=== PATIENT | male | born 1970 | race Caucasian/White ===

== ENCOUNTER 2020-02-29 08:56 | Outpatient (REF) | payer BC, SELFPAY ==
[2020-02-29 09:59] LABS: MANUAL DIFF FLAG NO
[2020-02-29 10:03] LABS: Basophils Percent Auto 0.3 % (0-2); Eosinophils Absolute Auto 0.4 X10*3/uL (0.0-0.4); Eosinophils Percent Auto 5.8 % (0-4); Hematocrit 47.7 % (42-52); Hemoglobin 15.8 g/dl (14.0-18.0); Imm Gran Abs Auto 0.02 X10*3/uL (0.00-0.03); Imm Gran Pct Auto 0.3 % (0.0-0.4); Lymphocytes Absolute Auto 2.4 X10*3/uL (1.2-4.9); Lymphocytes Percent Auto 39.3 % (20-40); Mean Corpuscular HGB Conc 33.1 g/dl (31.0-36.0); Mean Corpuscular Hemoglobin 29.4 pg (27.0-33.0); Mean Corpuscular Volume 88.7 fL (80-98); Mean Platelet Volume 10.9 fL (9.4-12.4); Monocytes Absolute Auto 0.4 X10*3/uL (0.1-1.2); Monocytes Percent Auto 6.2 % (2-11); Neutrophils Absolute Auto 2.9 X10*3/uL (2.0-8.3); Neutrophils Percent Auto 48.1 % (45-73); Platelet Count 201 X10*3/uL (160-400); Red Blood Count 5.38 X10*6/uL (4.60-5.80); Red Cell Distribution Width 12.6 % (11.0-16.0)
[2020-02-29 10:33] LABS: Alanine Aminotransferase 31 U/L (0-40); Albumin Level 4.2 g/dL (3.5-5.0); Alkaline Phosphatase 80 U/L (39-117); Anion Gap 13 (12-20); Aspartate Amino Transferase 18 U/L (5-37); Bilirubin Total 0.6 mg/dL (0.0-1.0); Blood Urea Nitrogen 13 mg/dL (9-16); Calcium 9.3 mg/dL (8.4-10.2); Carbon Dioxide 27 mmol/L (22-29); Chloride 104 mmol/L (96-108); Cholesterol 193 mg/dL; Estimated Glomerular Filt Rate > 60; Glucose Fasting 157 mg/dL (60-99); HDL Cholesterol 37 mg/dL; LDL Cholesterol Calculated 109 mg/dl; Potassium 4.7 mmol/l (3.3-5.1); Sodium 139 mmol/L (135-145); Total Protein 7.1 g/dL (6.5-8.0); Triglycerides 237 mg/dL
[2020-02-29 10:59] LABS: Estimated Average Glucose 249 mg/dL; Hemoglobin A1c % 10.3 %
[2020-02-29 11:32] LABS: Creatinine Urine 174.82 mg/dL
== END 2020-02-29 08:57 | disposition home or self-care (01) ==
LOC: HO.LAB 08:56
PROVIDERS: PCP Internal Medicine; Visit Provider Internal Medicine
DX: Z00.00 Encounter for general adult medical examination without abnormal findings (principal); E11.9 Type 2 diabetes mellitus without complications
CPT/HCPCS: 36415; 80053; 80061; 82043; 83036; 85025

== ENCOUNTER 2021-02-09 09:09 | Outpatient (REF) | payer BC, SELFPAY ==
[2021-02-09 09:24] LABS: MANUAL DIFF FLAG NO
[2021-02-09 10:03] LABS: Basophils Percent Auto 0.7 % (0-2); Eosinophils Absolute Auto 0.4 X10*3/uL (0.0-0.4); Eosinophils Percent Auto 7.3 % (0-4); Hematocrit 43.9 % (42.0-52.0); Hemoglobin 14.8 g/dl (14.0-18.0); Imm Gran Abs Auto 0.01 X10*3/uL (0.00-0.03); Imm Gran Pct Auto 0.2 % (0.0-0.4); Lymphocytes Absolute Auto 2.3 X10*3/uL (1.2-4.9); Lymphocytes Percent Auto 37.8 % (20-40); Mean Corpuscular HGB Conc 33.7 g/dl (31.0-36.0); Mean Corpuscular Hemoglobin 29.1 pg (27.0-33.0); Mean Corpuscular Volume 86.4 fL (80.0-98.0); Mean Platelet Volume 10.7 fL (9.4-12.4); Monocytes Absolute Auto 0.4 X10*3/uL (0.1-1.2); Monocytes Percent Auto 7.1 % (2-11); Neutrophils Absolute Auto 2.8 x10*3/uL (2.0-8.3); Neutrophils Percent Auto 46.9 % (45-73); Platelet Count 199 X10*3/uL (160-400); Red Blood Count 5.08 X10*6/uL (4.60-5.80); Red Cell Distribution Width 12.8 % (11.0-16.0)
[2021-02-09 10:28] LABS: Creatinine Urine 177.48 mg/dL; Microalbum/Creatinine Ratio Ur 5.6 ug/mg cr
[2021-02-09 10:41] LABS: Estimated Average Glucose 148 mg/dL; Hemoglobin A1c % 6.8 %
[2021-02-09 10:52] LABS: Alanine Aminotransferase 24 U/L (0-40); Albumin Level 4.1 g/dL (3.5-5.0); Alkaline Phosphatase 71 U/L (39-117); Anion Gap 10 (12-20); Aspartate Amino Transferase 15 U/L (5-37); Bilirubin Total 0.7 mg/dL (0.0-1.0); Blood Urea Nitrogen 14 mg/dL (9-16); Calcium 9.5 mg/dL (8.4-10.2); Carbon Dioxide 27 mmol/L (22-29); Chloride 104 mmol/L (96-108); Cholesterol 174 mg/dL; Estimated Glomerular Filt Rate > 60; Glucose Fasting 172 mg/dL (60-99); HDL Cholesterol 41 mg/dL; LDL Cholesterol Calculated 109 mg/dl; Potassium 4.5 mmol/L (3.3-5.1); Sodium 136 mmol/L (135-145); Thyroid Stimulating Hormone 1.49 uIU/mL (0.32-4.0); Triglycerides 122 mg/dL
[2021-02-09 14:48] LABS: Prostate Specific Antigen Scr 1.28 ng/mL (<0.05-4.0)
== END 2021-02-09 09:10 | disposition home or self-care (01) ==
LOC: HO.LAB 09:09
PROVIDERS: PCP Internal Medicine; Visit Provider Internal Medicine
DX: Z00.00 Encounter for general adult medical examination without abnormal findings (principal); Z12.5 Encounter for screening for malignant neoplasm of prostate; Z13.0 Encounter for screening for diseases of the blood and blood-forming organs and certain disorders involving the immune mechanism; E11.9 Type 2 diabetes mellitus without complications
CPT/HCPCS: 36415; 80053; 80061; 82043; 83036; 84153; 84443; 85025

== ENCOUNTER 2021-02-16 13:28 | Outpatient (REF) | payer BC, SELFPAY ==
--- NOTE | ~2021-02-16 | XR_ITS ---
EXAMINATION: XR CHEST CLINICAL INFORMATION: Cough for 4 months. COMPARISON: None TECHNIQUE: 2 views of the chest were obtained. FINDINGS: No significant abnormality is noted involving the heart, lungs, mediastinum, bony thorax or soft tissues. XR/XR chest 2V IMPRESSION: No acute cardiopulmonary process.
== END 2021-02-16 13:29 | disposition home or self-care (01) ==
LOC: HO.XRAY 13:28
PROVIDERS: PCP Internal Medicine; Visit Provider Internal Medicine
DX: R05.9 Cough, unspecified (principal)
CPT/HCPCS: 71046

== ENCOUNTER 2021-06-19 08:58 | Outpatient (REF) | payer BC, SELFPAY ==
--- NOTE | ~2021-06-19 | CT_ITS ---
EXAMINATION: CT HEAD WITHOUT CONTRAST CLINICAL INFORMATION: Headache. COMPARISON: None TECHNIQUE: Contiguous axial imaging was performed from the skull base to vertex without intravenous administration of contrast. This CT examination was performed using dose optimization techniques as appropriate, variously including the following: *Automated exposure control *Adjustment of mA and/or kV according to patient size (this includes techniques or standardized protocols for targeted exams where dose is matched to indication/reason for exam; i.e. extremities or head) *Use of iterative reconstruction technique DLP: 781 mGy-cm FINDINGS: There is no evidence of acute intracranial hemorrhage or territorial infarction. No abnormal mass effect or midline shift is seen. Kumar to white matter differentiation is well preserved. No extra-axial fluid collections are identified. The ventricles are normal in size. The osseous structures and soft tissues are normal. There is minimal mucoperiosteal thickening bilateral ethmoid sinuses. Rest of the paranasal sinuses and mastoid air cells are well aerated. CT/CT head/brain wo con IMPRESSION: No acute intracranial process seen.
== END 2021-06-19 08:59 | disposition home or self-care (01) ==
LOC: HO.CT 08:58
PROVIDERS: Visit Provider Internal Medicine
DX: R51.9 Headache, unspecified (principal)
CPT/HCPCS: 70450

== ENCOUNTER 2022-02-24 09:01 | Outpatient (REF) | payer BC, SELFPAY ==
[2022-02-24 09:15] LABS: MANUAL DIFF FLAG NO
[2022-02-24 09:32] LABS: Basophils Percent Auto 0.5 % (0-2); Eosinophils Absolute Auto 0.3 X10*3/uL (0.0-0.4); Eosinophils Percent Auto 6.3 % (0-4); Hematocrit 44.8 % (42.0-52.0); Hemoglobin 15.2 g/dl (14.0-18.0); Imm Gran Abs Auto 0.02 X10*3/uL (0.00-0.03); Imm Gran Pct Auto 0.5 % (0.0-0.4); Lymphocytes Absolute Auto 1.3 X10*3/uL (1.2-4.9); Lymphocytes Percent Auto 29.6 % (20-40); Mean Corpuscular HGB Conc 33.9 g/dl (31.0-36.0); Mean Corpuscular Hemoglobin 29.3 pg (27.0-33.0); Mean Corpuscular Volume 86.3 fL (80.0-98.0); Mean Platelet Volume 11.1 fL (9.4-12.4); Monocytes Absolute Auto 0.4 X10*3/uL (0.1-1.2); Monocytes Percent Auto 9.3 % (2-11); Neutrophils Absolute Auto 2.4 x10*3/uL (2.0-8.3); Neutrophils Percent Auto 53.8 % (45-73); Platelet Count 149 X10*3/uL (160-400); Red Blood Count 5.19 X10*6/uL (4.60-5.80); Red Cell Distribution Width 12.2 % (11.0-16.0); White Blood Count 4.4 X10*3/uL (4.8-10.8)
[2022-02-24 10:17] LABS: Alanine Aminotransferase 101 U/L (0-40); Albumin Level 3.9 g/dL (3.5-5.0); Alkaline Phosphatase 93 U/L (39-117); Anion Gap 13 (12-20); Aspartate Amino Transferase 77 U/L (5-37); Bilirubin Total 0.6 mg/dL (0.0-1.0); Blood Urea Nitrogen 11 mg/dL (9-16); Calcium 9.1 mg/dL (8.4-10.2); Carbon Dioxide 25 mmol/L (22-29); Chloride 103 mmol/L (96-108); Cholesterol 290 mg/dL; Estimated Average Glucose 275 mg/dL; Estimated Glomerular Filt Rate > 60; Glucose Fasting 327 mg/dL (60-99); HDL Cholesterol 35 mg/dL; Hemoglobin A1c % 11.2 %; LDL Cholesterol Calculated 196 mg/dl; Potassium 3.8 mmol/L (3.3-5.1); Sodium 137 mmol/L (135-145); Total Protein 6.8 g/dL (6.5-8.0); Triglycerides 298 mg/dL
[2022-02-24 10:39] LABS: Thyroid Stimulating Hormone 1.26 uIU/mL (0.32-4.0)
== END 2022-02-24 09:02 | disposition home or self-care (01) ==
LOC: HO.LAB 09:01
PROVIDERS: Visit Provider Internal Medicine
DX: Z00.00 Encounter for general adult medical examination without abnormal findings (principal); Z13.0 Encounter for screening for diseases of the blood and blood-forming organs and certain disorders involving the immune mechanism; E11.9 Type 2 diabetes mellitus without complications
CPT/HCPCS: 36415; 80053; 80061; 83036; 84443; 85025

== ENCOUNTER 2022-03-29 09:42 | Outpatient (REF) | payer BC, SELFPAY ==
[2022-03-29 11:40] LABS: Creatinine Urine 123.63 mg/dL; Microalbum/Creatinine Ratio Ur 5.6 ug/mg cr
[2022-03-29 11:46] LABS: Estimated Average Glucose 240 mg/dL
[2022-03-29 11:53] LABS: Glucose Fasting 217 mg/dL (60-99)
== END 2022-03-29 09:43 | disposition home or self-care (01) ==
LOC: HO.LAB 09:42
PROVIDERS: PCP Internal Medicine; Visit Provider Internal Medicine
DX: E66.01 Morbid (severe) obesity due to excess calories (principal); E11.65 Type 2 diabetes mellitus with hyperglycemia
CPT/HCPCS: 36415; 82043; 82947; 83036

== ENCOUNTER 2022-07-07 08:35 | Outpatient (REF) | payer BC, SELFPAY ==
[2022-07-07 09:35] LABS: Cholesterol 225 mg/dL; Glucose Fasting 324 mg/dL (60-99); HDL Cholesterol 37 mg/dL; Triglycerides 1064 mg/dL
[2022-07-07 09:37] LABS: Estimated Average Glucose 214 mg/dL; Hemoglobin A1c % 9.1 %
== END 2022-07-07 08:36 | disposition home or self-care (01) ==
LOC: HO.LAB 08:35
PROVIDERS: PCP Internal Medicine; Visit Provider Internal Medicine
DX: R73.9 Hyperglycemia, unspecified (principal); E78.5 Hyperlipidemia, unspecified
CPT/HCPCS: 36415; 80061; 82947; 83036

== ENCOUNTER 2022-12-10 08:44 | Outpatient (REF) | payer BC, SELFPAY ==
--- NOTE | ~2022-12-10 | XR_ITS ---
EXAMINATION: XR CERVICAL SPINE CLINICAL INFORMATION: Cervicalgia. COMPARISON: None available. TECHNIQUE: Frontal, lateral and odontoid views are obtained. FINDINGS: Vertebral body heights and alignment are normal. The disc spaces are well-maintained. No acute fracture or spondylolisthesis is seen. There are limbus vertebra incidentally noted anterior to the C4-C5 and C5-C6 disc spaces. The posterior elements are intact. There is facet arthropathy, most pronounced at C5-C6. There is no prevertebral soft tissue swelling. The dens and C7-T1 interface are normal. XR/XR cervical spine 2V IMPRESSION: 1.No acute fracture or spondylolisthesis is seen. 2. The cervical disc spaces are well-maintained. 3. There is facet arthropathy, most pronounced at C5-C6.
[2022-12-10 09:50] LABS: Estimated Average Glucose 220 mg/dL; Hemoglobin A1c % 9.3 % (<6.0)
[2022-12-10 10:26] LABS: Cholesterol 172 mg/dL (<200); Glucose Fasting 267 mg/dL (60-99); HDL Cholesterol 47 mg/dL (>40); LDL Cholesterol Calculated 100 mg/dL (<100); Triglycerides 128 mg/dL (<150)
== END 2022-12-10 08:45 | disposition home or self-care (01) ==
LOC: HO.LAB 08:44
PROVIDERS: PCP Internal Medicine; Visit Provider Internal Medicine
DX: R73.9 Hyperglycemia, unspecified (principal); E78.5 Hyperlipidemia, unspecified; M54.2 Cervicalgia
CPT/HCPCS: 36415; 72040; 80061; 82947; 83036

== ENCOUNTER 2022-12-10 13:44 | Outpatient (AMB) | payer BC, SELFPAY ==
[2022-12-10 13:48] VITALS: BP 122/86; PULSE 73; O2SAT 98; BMI 25.7
--- NOTE | 2022-12-10 13:48 | MHC.PC.OV ---
Vital Signs 12/10/22 13:48 Height 5 ft 6 in Weight 159 lb BMI 25.7 BP 122/86 Blood Pressure Location Lt brachial Position Sitting Pulse 73 Pulse Source Pulse Oximeter Pulse Oximetry (%) 98 Oxygen Delivery Method Room Air Intake Visit Reasons: 3 month f/u Allergies No Known Allergies Allergy (Verified 12/10/22 13:48) Medication List - Last Reconciled 12/10/22 by Aguilar Landaverde MD atorvastatin 40 mg PO DAILY blood-glucose meter,continuous (Dexcom G7 Spinner Hydraulic) As directed blood-glucose sensor (Dexcom G7 Sensor device) As directed hydroxyzine HCl 25 mg PO BID PRN hydroxyzine pamoate 25 mg PO QID PRN metformin 500 mg PO BID naltrexone 50 mg PO DAILY Tobacco use date assessed: 02/26/22 Dental Screening Dental Screen Date: 12/10/22 Did you have a dental visit in the last 12 months?: No Did you have a dental problem in the last 6 months where you did not have access to dental care?: No Was dental information given to patient?: Patient has dentist HPI 3 month f/u HPI Details DM hyperlip and neck pain; tolreating metformin well; A1C still high and needs to increase dose PFSH Medical History Hyperlipidemia associated with type 2 diabetes mellitus Hyperlipidemia Diabetes mellitus Surgical History No pertinent past surgical history Family History Father No problems noted. Mother No problems noted. Social History Housing: House Alcohol intake: current Alcohol intake frequency: a few times a month Patient Tobacco Use Status: Never used Tobacco e-Cigarette/Vaping Use: Never Used Second Hand Smoke Exposure: No service: No Current occupational status: employed Current occupational exposures/hazards: No Cognitive needs: No Hearing needs: No Vision needs: No Questionnaire PHQ-9 Over the last 2 weeks, how often have you been bothered by any of the following problems? 1. Little interest or pleasure in doing things: not at all 2. Feeling down, depressed, or hopeless: not at all 3. Trouble falling or staying asleep, or sleeping too much: not at all 4. Feeling tired or having little energy: not at all 5. Poor appetite or overeating: not at all 6. Feeling bad about yourself - or that you are a failure or have let yourself or your family down: not at all 7. Trouble concentrating on things, such as reading the newspaper or watching television: not at all 8. Moving or speaking so slowly that other people could have noticed. Or the opposite - being so fidgety or restless that you have been moving around a lot more than usual: not at all 9. Thoughts that you would be better off or of hurting yourself in some way: not at all Total score: 0 Depression Screening Interpretation: Negative Depression Screening Done: Yes 14786 - PHQ-9 Billing: Yes Source: Developed by Drs. Alan Perez, Mitzy De Souza, Bryan Haider and colleagues, with an educational nando from [employer]. Thrive Questionnaire Date Thrive assessed: 02/26/22 AUDIT C Alcohol Use Questionnaire (AUDIT-C) 1. How often do you have a drink containing alcohol?: Never Total Score: 0 Score Reviewed/Action Taken: Yes SERGEI-7 AMB Questionnaire SERGEI-7 Date SERGEI - 7 assessed: 02/26/22 Source: Developed by Drs. Alan Perez, Mitzy De Souza, Bryan Haider and colleagues, with an educational nando from [employer]. Review of Systems Const Denies chills, Denies headache(s) and Denies weight loss ENT Denies headache(s) Card Denies chest pain, Denies syncope, Denies irregular heart rhythm and Denies dyspnea Resp Denies chest congestion, Denies cough and Denies dyspnea GI Denies abdominal pain, Denies change in stool character, Denies nausea and Denies vomiting Musc Denies deformity and Denies joint swelling Neuro Denies syncope and Denies headache(s) Physical exam (Primary Care) Vital Signs: Last Vital Signs Pulse 73 12/10/22 13:48 BP 122/86 12/10/22 13:48 Pulse Ox 98 12/10/22 13:48 Oxygen Delivery Method Room Air 12/10/22 13:48 BMI result Body Mass Index 25.7 Tobacco/Smoking Status: Tobacco use Status Tobacco use date assessed 02/26/22 12/10/22 13:53 Patient Tobacco Use Status Never used Tobacco 12/10/22 13:53 Tobacco use type 01/22/22 16:07 e-Cigarette/Vaping Use Never Used 12/10/22 13:53 PHQ-9: PHQ-9 Score PHQ-9: Total score 0 12/10/22 13:53 Depression Screening Interpretation: Negative Thrive Assessment: Date of Thrive Assessment Date Thrive assessed 02/26/22 12/10/22 13:53 Const General: cooperative, comfortable, no acute distress and alert Neck Neck: Yes no lymphadenopathy Thyroid: Thyroid normal Resp Effort & Inspection: normal respiratory effort Auscultation: clear to auscultation bilaterally Percussion: percussion normal Cardio Jugular venous distension: no JVD Palpation: normal PMI Rate: regular rate Rhythm: regular rhythm Heart sounds: S1 normal heart sound present and S2 normal heart sound present GI Inspection: Yes normal to inspection Palpation (GI): No hepatosplenomegaly present Skin General skin exam: no rashes or lesions noted Extrem General: Yes no clubbing, cyanosis or edema Assessment and Plan Assessment & Plan (1) Hyperlipidemia associated with type 2 diabetes mellitus: Code(s): E11.69 - Type 2 diabetes mellitus with other specified complication; E78.5 - Hyperlipidemia, unspecified Plan: stable; same sose (2) Diabetes mellitus: Code(s): E11.9 - Type 2 diabetes mellitus without complications Plan: increase rx (3) Neck pain: Code(s): M54.2 - Cervicalgia Plan: xr Orders: Orders Lipid Panel Today E78.5 - Hyperlipidemia, unspecified Glucose Fasting Today R73.9 - Hyperglycemia, unspecified XR cervical spine 2V Today M54.2 - Cervicalgia Hemoglobin A1c Today R73.9 - Hyperglycemia, unspecified Medications: New metformin 1,000 mg PO BID 180 tabs 8RF Refilled atorvastatin 40 mg PO DAILY 90 tabs 3RF metformin 500 mg PO BID 180 tabs 2RF E11.9 - Type 2 diabetes mellitus without complications Coding Level of Care Code Est Pt Level 4 (27508) Diagnoses Hyperlipidemia associated with type 2 diabetes mellitus E11.69; E78.5 Diabetes mellitus E11.9 Neck pain M54.2
== END 2022-12-10 14:00 | disposition home or self-care (01) ==
PROVIDERS: PCP Internal Medicine; Visit Provider Internal Medicine
DX: E11.69 Type 2 diabetes mellitus with other specified complication (principal); E78.5 Hyperlipidemia, unspecified; E11.9 Type 2 diabetes mellitus without complications; M54.2 Cervicalgia
CPT/HCPCS: 99214

== ENCOUNTER 2023-02-06 09:00 | Outpatient (AMB) | payer BC, SELFPAY ==
--- NOTE | 2023-02-06 08:49 | A.OFFPC_ITS ---
Vital Signs 02/06/23 08:49 Height 5 ft 6 in Intake Visit Reasons: Cold/flu symptoms sore throat/[phone] Mobile Disc Jockey Required: No Allergies No Known Allergies Allergy (Verified 02/06/23 08:50) Tobacco use date assessed: 02/26/22 Dental Screening Dental Screen Date: 02/06/23 Did you have a dental visit in the last 12 months?: Yes Did you have a dental problem in the last 6 months where you did not have access to dental care?: No Was dental information given to patient?: Patient has dentist HPI Cold/flu symptoms sore throat/[phone] HPI Details sore throat for a few days PFSH Medical History Hyperlipidemia associated with type 2 diabetes mellitus Hyperlipidemia Diabetes mellitus Surgical History No pertinent past surgical history Family History Father No problems noted. Mother No problems noted. Social History Housing: House Alcohol intake: current Alcohol intake frequency: a few times a month Patient Tobacco Use Status: Never used Tobacco e-Cigarette/Vaping Use: Never Used Second Hand Smoke Exposure: No service: No Current occupational status: employed Current occupational exposures/hazards: No Cognitive needs: No Hearing needs: No Vision needs: No Questionnaire Thrive Questionnaire Date Thrive assessed: 02/26/22 SERGEI-7 AMB Questionnaire SERGEI-7 Date SERGEI - 7 assessed: 02/26/22 Source: Developed by Drs. Alan Perez, Mitzy De Souza, Bryan Haider and colleagues, with an educational nando from [employer]. Review of Systems Const Denies chills, Denies headache(s) and Denies weight loss ENT Denies headache(s) Card Denies chest pain, Denies syncope, Denies irregular heart rhythm and Denies dyspnea Resp Denies chest congestion, Denies cough and Denies dyspnea GI Denies abdominal pain, Denies change in stool character, Denies nausea and Denies vomiting Musc Denies deformity and Denies joint swelling Neuro Denies syncope and Denies headache(s) Physical exam (Primary Care) Tobacco/Smoking Status: Tobacco use Status Tobacco use date assessed 02/26/22 02/06/23 08:51 Patient Tobacco Use Status Never used Tobacco 02/06/23 08:51 Tobacco use type 01/22/22 16:07 e-Cigarette/Vaping Use Never Used 02/06/23 08:51 Thrive Assessment: Date of Thrive Assessment Date Thrive assessed 02/26/22 02/06/23 08:51 Telehealth Telehealth Location of provider rendering services: practice address Location of patient: address on file Patient Identification confirmed using: Name, : Yes Telehealth method: voice only Patient verbally consented to treatment: Yes Patient verbally consented to billing insurance company: Yes Patient informed of any privacy concerns related to visit: Yes Minutes spent on Phone/Video with Pt.: 15 (telephone) Assessment and Plan Assessment & Plan (1) Sore throat: Code(s): J02.9 - Acute pharyngitis, unspecified Plan: rx Medications: New azithromycin take 500 mg today (day 1), then 250 mg for 4 days (days 2-5) PO 6 tabs 0RF Coding Level of Care Code Tele Est Pt Level 3 (92169) Diagnoses Sore throat J02.9
== END 2023-02-06 10:04 | disposition home or self-care (01) ==
LOC: HO.HMGH 09:00
PROVIDERS: PCP Internal Medicine; Visit Provider Internal Medicine
DX: J02.9 Acute pharyngitis, unspecified (principal)
CPT/HCPCS: 99442

== ENCOUNTER 2023-03-02 09:43 | Outpatient (REF) | payer BC, SELFPAY ==
[2023-03-02 10:23] LABS: Estimated Average Glucose 258 mg/dL; Hemoglobin A1c % 10.6 % (<6.0)
[2023-03-02 10:49] LABS: Cholesterol 146 mg/dL (<200); Glucose Fasting 267 mg/dL (60-99); HDL Cholesterol 35 mg/dL (>40); LDL Cholesterol Calculated 54 mg/dL (<100); Triglycerides 287 mg/dL (<150)
== END 2023-03-02 09:44 | disposition home or self-care (01) ==
LOC: HO.LAB 09:43
PROVIDERS: PCP Internal Medicine; Visit Provider Internal Medicine
DX: R73.9 Hyperglycemia, unspecified (principal); E78.5 Hyperlipidemia, unspecified
CPT/HCPCS: 36415; 80061; 82947; 83036

== ENCOUNTER 2023-03-04 09:01 | Outpatient (AMB) | payer BC, SELFPAY ==
[2023-03-04 09:05] VITALS: BP 114/64; PULSE 70; O2SAT 99; BMI 25.8
--- NOTE | 2023-03-04 09:05 | A.OFFPC_ITS ---
Vital Signs 03/04/23 09:05 Height 5 ft 6 in Weight 160 lb BMI 25.8 BP 114/64 Blood Pressure Location Lt brachial Position Sitting Pulse 70 Pulse Source Pulse Oximeter Pulse Oximetry (%) 99 Oxygen Delivery Method Room Air Intake Visit Reasons: PE .Net Developer Required: No Sammying Machine Operator: Not Required per policy Accompanied by: Self / Same As Patient Allergies No Known Allergies Allergy (Verified 03/04/23 09:05) Medication List - Last Reconciled 03/04/23 by Aguilar Landaverde MD albuterol sulfate 90 mcg/actuation (ProAir HFA) 2 puffs PO Q6H PRN atorvastatin 40 mg PO DAILY azithromycin take 500 mg today (day 1), then 250 mg for 4 days (days 2-5) PO blood-glucose meter,continuous (Dexcom G7 Process Engineering Manager) As directed blood-glucose sensor (Dexcom G7 Sensor device) As directed metformin 500 mg PO BID metformin 1,000 mg PO BID Tobacco use date assessed: 03/04/23 Dental Screening Dental Screen Date: 03/04/23 Did you have a dental visit in the last 12 months?: No Did you have a dental problem in the last 6 months where you did not have access to dental care?: No Was dental information given to patient?: Patient has dentist HPI PE HPI Details asthma DM and hyperlip; DM in poor cintrol [facility], [facility] Medical History Hyperlipidemia associated with type 2 diabetes mellitus Hyperlipidemia Diabetes mellitus Surgical History No pertinent past surgical history Family History Father No problems noted. Mother No problems noted. Social History Housing: House Alcohol intake: current Alcohol intake frequency: a few times a month Patient Tobacco Use Status: Never used Tobacco e-Cigarette/Vaping Use: Never Used Second Hand Smoke Exposure: No service: No Current occupational status: employed Current occupational exposures/hazards: No Cognitive needs: No Hearing needs: No Vision needs: No Questionnaire PHQ-9 Over the last 2 weeks, how often have you been bothered by any of the following problems? 1. Little interest or pleasure in doing things: not at all 2. Feeling down, depressed, or hopeless: not at all 3. Trouble falling or staying asleep, or sleeping too much: not at all 4. Feeling tired or having little energy: not at all 5. Poor appetite or overeating: not at all 6. Feeling bad about yourself - or that you are a failure or have let yourself or your family down: not at all 7. Trouble concentrating on things, such as reading the newspaper or watching television: not at all 8. Moving or speaking so slowly that other people could have noticed. Or the opposite - being so fidgety or restless that you have been moving around a lot more than usual: not at all 9. Thoughts that you would be better off or of hurting yourself in some way: not at all Total score: 0 Depression Screening Interpretation: Negative Depression Screening Done: Yes 97529 - PHQ-9 Billing: Yes Source: Developed by Drs. Alan Perez, Mitzy De Souza, Bryan Haider and colleagues, with an educational nando from [employer]. Thrive Questionnaire Date Thrive assessed: 03/04/23 I am a: Patient What is your living situation today?: I have a steady place to live Within the past 12 months, did the food you bought not last and you didn't have the money to get more?: Never true Within the past 12 months, did you worry whether your food would run out before you got money to buy more?: Never true Do you have trouble paying for medicines?: No Do you have trouble getting transportation to medical appointments?: No Do you have trouble paying your heating and electricity bill?: No Do you have trouble taking care of your child, family member or friend?: No Do you have trouble with day-to-day activities such as bathing, preparing meals, shopping, managing finances, etc.?: No Are you currently unemployed and looking for a job?: No Are you interested in more education?: No Please select the resources that you would like help with: None AUDIT C Alcohol Use Questionnaire (AUDIT-C) 1. How often do you have a drink containing alcohol?: Never Total Score: 0 Score Reviewed/Action Taken: Yes SERGEI-7 AMB Questionnaire SERGEI-7 Date SERGEI - 7 assessed: 03/04/23 Feeling nervous, anxious, or on edge: 0 = Not at all Not being able to stop or control worryin = Not at all Worrying too much about different things: 0 = Not at all Trouble relaxin = Not at all Being so restless that it is hard to sit still: 0 = Not at all Becoming easily annoyed or irritable: 0 = Not at all Feeling afraid as if something awful might happen: 0 = Not at all Total SERGEI-7 score (0-4 normal; 5-9 mild; 10-14 moderate; 15-21 severe): 0 Source: Developed by Drs. Alan Perez, Mitzy De Souza, Bryan Haider and colleagues, with an educational nando from [employer]. SERGEI-7 Assessment Billing SERGEI-7 Assessment Tool: SERGEI-7 Assessment 29518 Review of Systems Const Denies chills, Denies fatigue, Denies headache(s) and Denies weight loss Eyes Denies change in vision, Denies diplopia and Denies eye pain ENT Denies vertigo, Denies dizziness, Denies headache(s) and Denies nasal discharge Card Denies chest pain, Denies rapid heart rate and Denies dyspnea on exertion Resp Denies chest congestion, Denies cough, Denies pain with cough and Denies dyspnea on exertion GI Denies abdominal pain, Denies hematochezia and Denies change in bowel habits Musc Denies myalgias, Denies arthralgias and Denies joint swelling Skin/Breast Denies lesions and Denies unusual bruising Neuro Denies vertigo, Denies dizziness, Denies headache(s) and Denies focal weakness Endo Denies fatigue Physical exam (Primary Care) Vital Signs: Last Vital Signs Pulse 70 03/04/23 09:05 BP 114/64 03/04/23 09:05 Pulse Ox 99 03/04/23 09:05 Oxygen Delivery Method Room Air 03/04/23 09:05 BMI result Body Mass Index 25.8 Tobacco/Smoking Status: Tobacco use Status Tobacco use date assessed 03/04/23 03/04/23 09:06 Patient Tobacco Use Status Never used Tobacco 03/04/23 09:06 Tobacco use type 01/22/22 16:07 e-Cigarette/Vaping Use Never Used 03/04/23 09:06 PHQ-9: PHQ-9 Score PHQ-9: Total score 0 03/04/23 09:06 Depression Screening Interpretation: Negative Thrive Assessment: Date of Thrive Assessment Date Thrive assessed 03/04/23 03/04/23 09:06 Const General: cooperative, healthy appearing and no acute distress Orientation/consciousness: oriented to person, oriented to place and oriented to time HENMT Head: Yes normal to inspection, Yes normocephalic and Yes atraumatic Mouth: Normal oral and palatal mucosa present and tongue normal Throat: Yes posterior oropharynx normal and Yes uvula midline Eyes General: appearance normal, both eyes and all related structures Neck Neck: Yes normal visual inspection, Yes full ROM and Yes no lymphadenopathy Thyroid: Thyroid normal Carotids: normal carotid upstroke Chest Chest palpation & inspection: normal inspection of the chest Resp Effort & Inspection: normal respiratory effort and able to speak in complete sentences Auscultation: clear to auscultation bilaterally Cardio Jugular venous distension: no JVD Palpation: normal PMI Rate: regular rate Rhythm: regular rhythm Heart sounds: S1 normal heart sound present and S2 normal heart sound present GI Inspection: Yes normal to inspection Palpation (GI): Soft to palpation and No hepatosplenomegaly present Auscultation: normal bowel sounds General: Yes no CVA tenderness Back/Spine/Pelvis Back: no CVA tenderness Skin General skin exam: no rashes or lesions noted Neuro General: oriented to person, oriented to place and oriented to time Extrem General: Yes normal to inspection and Yes full ROM Assessment and Plan Assessment & Plan (1) Physical exam: Code(s): Z00.00 - Encounter for general adult medical examination without abnormal findings Plan: stable (2) Hyperlipidemia: Code(s): E78.5 - Hyperlipidemia, unspecified Plan: stable; same rx (3) Diabetes mellitus: Code(s): E11.9 - Type 2 diabetes mellitus without complications Plan: A1C 10; ref endo (4) Asthma: Code(s): J45.909 - Unspecified asthma, uncomplicated Plan: same rx Orders: Orders Complete Blood Count Auto Diff Today D64.9 - Anemia, unspecified Thyroid Stimulating Hormone Today E03.9 - Hypothyroidism, unspecified Lipid Panel Today E78.5 - Hyperlipidemia, unspecified Comprehensive Enterprise. Panel Fast Today N28.9 - Disorder of kidney and ureter, unspecified Hemoglobin A1c Today R73.9 - Hyperglycemia, unspecified Referrals Endocrinology Referral E11.9 - Type 2 diabetes mellitus without complications Medications: New albuterol sulfate 90 mcg/actuation (ProAir HFA) 2 puffs PO Q6H PRN 18 grams 8RF bronchospasm Coding Level of Care Code Est Pt Prev Care 40-64y(41572) Diagnoses Physical exam Z00.00 Hyperlipidemia E78.5 Diabetes mellitus E11.9 Asthma J45.909 Additional Codes SERGEI-7 Assessment Billing - SERGEI-7 Assessment Tool: SERGEI-7 Assessment 49238 ([id number])
== END 2023-03-04 10:33 | disposition home or self-care (01) ==
PROVIDERS: Visit Provider Internal Medicine
DX: Z00.00 Encounter for general adult medical examination without abnormal findings (principal); E78.5 Hyperlipidemia, unspecified; E11.9 Type 2 diabetes mellitus without complications; J45.909 Unspecified asthma, uncomplicated
CPT/HCPCS: 99396

== ENCOUNTER 2023-08-12 15:02 | Outpatient (AMB) | payer BC, SELFPAY ==
--- NOTE | 2023-08-12 15:02 | MHC.OFFWIV ---
Intake Vital Signs 08/12/23 15:03 Height 5 ft 6 in Weight 156 lb BMI 25.2 BP 110/70 Blood Pressure Location Rt brachial Position Sitting Pulse 77 Pulse Source Pulse Oximeter Temp 97.9 F Temp Source Oral Pulse Oximetry (%) 97 Oxygen Delivery Method Room Air Intake Visit Reasons: EP Lump RT side neck Intake Note: Pt is here today c/o Rt side of neck lump Patient Tobacco Use Status: Never used Tobacco Allergies No Known Allergies Allergy (Verified 08/12/23 15:07) HPI HPI Comments History of Present Illness Details 52 y/o male patient who presents to walk in clinic with c/o Lump right sided Neck since yesterday night. Reports tenderness to touch and hurts to chew. PFSH Medical History Hyperlipidemia associated with type 2 diabetes mellitus Hyperlipidemia Diabetes mellitus Surgical History No pertinent past surgical history Family History Father No problems noted. Mother No problems noted. Social History Housing: House Alcohol intake: current Alcohol intake frequency: a few times a month Patient Tobacco Use Status: Never used Tobacco e-Cigarette/Vaping Use: Never Used Second Hand Smoke Exposure: No service: No Current occupational status: employed Current occupational exposures/hazards: No Cognitive needs: No Hearing needs: No Vision needs: No Review of Systems Const All systems reviewed & are unremarkable except as noted in HPI and below Physical Exam Vital Signs: Last Vital Signs Temp 97.9 F 08/12/23 15:03 Pulse 77 08/12/23 15:03 BP 110/70 08/12/23 15:03 Pulse Ox 97 08/12/23 15:03 Oxygen Delivery Method Room Air 08/12/23 15:03 BMI result Body Mass Index 25.2 Const General: comfortable and no acute distress Nutritional Appearance: well nourished Orientation/consciousness: patient oriented x3 HEENT Head: Yes normocephalic Ears: external ears normal and TM abnormal with fluid behind the TM bilateral General nose exam: Abnormal mucous membranes and turbinates present boggy and erythematous Face and sinus: Yes sinuses nontender Throat: Yes uvula midline Neck Neck: Yes trachea midline, Yes supple, Yes lymphadenopathy (Enlarged Sublingual Nodes ) and Yes no JVD Neuro General: patient oriented x3 Assessment & Plan Assessment & Plan (1) Lymphadenopathy: Code(s): R59.1 - Generalized enlarged lymph nodes Plan: Apply Ice for pain relief Acetaminophen for pain relief Will continue to monitor Enlarged Sublingual Nodes Coding Level of Care Code Est Pt Level 3 (70969) Diagnoses Lymphadenopathy R59.1 Time Spent (min) 15
[2023-08-12 15:03] VITALS: BP 110/70; PULSE 77; TEMP 36.6; O2SAT 97; BMI 25.2
== END 2023-08-12 16:02 | disposition home or self-care (01) ==
PROVIDERS: PCP Internal Medicine; Visit Provider Nurse Practitioner Family
DX: R59.1 Generalized enlarged lymph nodes (principal)
CPT/HCPCS: 99213

== ENCOUNTER 2023-09-12 10:01 | Outpatient (AMB) | payer BC, SELFPAY ==
--- NOTE | 2023-09-12 10:34 | MHC.OFFWIV ---
Intake Vital Signs 09/12/23 10:35 Height 5 ft 6 in Weight 154 lb BMI 24.9 BP 128/84 Pulse 112 H Pulse Source Auscultation Temp 98.3 F Temp Source Oral Intake Visit Reasons: Covid + 09/12/25 Intake Note: pt here c/o Covid +. Tested positive 7/ PM. Symptoms started last night, Slight cough and runny nose Patient Tobacco Use Status: Never used Tobacco Allergies No Known Allergies Allergy (Verified 09/12/23 10:40) Do you need a note to return to daycare/school/sports/work: Yes HPI Covid + 09/12/25 HPI Details This note is constructed using voice recognition software. While every effort has been made to ensure accuracy, [employer] errors may have been included. The patient is a 52 year old male who presents to the clinic today with positive COVID test as morning, symptom onset last night, runny nose, general coryza. He denies fever, chills, dyspnea. He reports that he does live with somebody else who is not currently sick. He is quarantined from that person since he has tested positive. He is interested in the antiviral therapy Paxlovid. He reports no history of kidney disease or abnormal kidney function. He is currently hydrating, and taking Tylenol and Motrin. [facility] Medical History Hyperlipidemia associated with type 2 diabetes mellitus Hyperlipidemia Diabetes mellitus Surgical History No pertinent past surgical history Family History Father No problems noted. Mother No problems noted. Social History Housing: House Alcohol intake: current Alcohol intake frequency: a few times a month Patient Tobacco Use Status: Never used Tobacco e-Cigarette/Vaping Use: Never Used Second Hand Smoke Exposure: No service: No Current occupational status: employed Current occupational exposures/hazards: No Cognitive needs: No Hearing needs: No Vision needs: No Review of Systems Const All systems reviewed & are unremarkable except as noted in HPI and below Physical Exam Vital Signs: Last Vital Signs Temp 98.3 F 09/12/23 10:35 Pulse 112 H 09/12/23 10:35 BP 128/84 09/12/23 10:35 BMI result Body Mass Index 24.9 Const General: cooperative, healthy appearing, comfortable and no acute distress Orientation/consciousness: patient oriented x3 Limitations: no limitations Eyes General: appearance normal, both eyes and all related structures Neck Neck: Yes normal visual inspection Resp Effort & Inspection: normal respiratory effort, able to speak in complete sentences, Actively coughing, no respiratory distress, not tachypneic, no tripod positioning and no use of accessory muscles Auscultation: clear to auscultation bilaterally Cardio Jugular venous distension: no JVD Rate: regular rate Rhythm: regular rhythm Heart sounds: S1 normal heart sound present, S2 normal heart sound present, no click, no gallops, no murmurs and no rubs Skin General skin exam: no rashes or lesions noted, elasticity normal and turgor normal Neuro General: patient oriented x3 Extrem General: Yes normal to inspection and Yes no clubbing, cyanosis or edema Assessment & Plan Assessment & Plan (1) Coronavirus infection: Code(s): B34.2 - Coronavirus infection, unspecified Plan: Supportive measures encouraged and reviewed including antipyretics, NSAIDs for fever and pain, hydration, humidification, topical Vicks vapor rub or similar. Discussed Paxlovid, antiviral therapy including side effects, implications unlikely outcomes. Patient would like to proceed with Paxlovid. Advised to stop statin during treatment and for 2 days following. Advised 5 day quarantine, follow up by 5 additional days of wearing mask. Advised to remain out of work per current CDC guidelines. Discussed increased level of care with dyspnea. Follow up as needed with primary care as well. Given that patient has also a diabetic, highly encouraged patient to increase monitoring of glucose for any worsening in viral illness. Plan See above for full details and plan. Medications: New nirmatrelvir-ritonavir 300 mg (150 mg x 2)-100 mg (Paxlovid) take TWO 150 mg tablets of nirmatrelvir with ONE 100 mg tablet of ritonavir twice daily for 5 days PO. Stop cholesterol medication during and for 2 days after dosing 30 ea 0RF Coding Level of Care Code Est Pt Level 4 (96339) Diagnoses Coronavirus infection B34.2
[2023-09-12 10:35] VITALS: BP 128/84; PULSE 112; TEMP 36.8; BMI 24.9
== END 2023-09-12 11:19 | disposition home or self-care (01) ==
PROVIDERS: PCP Internal Medicine; Visit Provider Registered Nurse
DX: B34.2 Coronavirus infection, unspecified (principal)
CPT/HCPCS: 99213

== ENCOUNTER 2024-06-29 15:01 | Outpatient (AMB) | payer BC, SELFPAY ==
--- OUTSIDE RECORDS SUMMARY | 2024-06-29 15:04 | XMS_ITS | Clinical Summary ---
Author Organization [facility] Address [address] [place] [address] Care Team Providers Care [employer] Name Role Phone Willem Nguyen NP Primary Care Provider [phone] Source Comments PLEASE NOTE, if this patient is a minor, it may be UNLAWFUL to discuss sensitive information that is contained in these records (such as FAMILY PLANNING, MENTAL HEALTH or SUBSTANCE ABUSE) with the minor patient's parent or other person without the patient's specific authorization.[facility] Allergies No known active allergies Social History Tobacco Use Types Packs/Day Years Used Date Smoking Tobacco: Never Smokeless Tobacco: Never Alcohol Use Standard Drinks/Week Comments Yes 0 (1 standard drink = 0.6 oz pur e alcohol) Social Connections Answer Date Recorded Social Connections and Isolation 0 2018 Financial Resource Strain Answer Date R ecorded Financial Resource Strain 0 2018 Stress Answer Date Recorded Stress 0 2018 Physical Activity Answer Date Recorded Physical Activity 0 2018 Food Insecurity Answer Date Recorded Food 0 2018 Transportation Needs Answer Date Record ed Transportation 0 2018 Housing Stability Answer Date Recorded Housing 0 2018 Safety and Environment Answer Date Luciano rded Safety 0 2018 Utilities Answer Date Recorded Utilities 0 2018 Employment Answer Date Recorded Employment 0 2018 Sex and Gender Information Value Date Recorded Sex Assigned at Not on file Legal Sex Male 1:44 PM PDT Gender Identity Not on file Sexual Orientation Not on file Last Filed Vital Signs Vital Sign Reading Time Taken Comments Blood Pressure 110/86 11/02/2014 9:05 AM EDT Pulse 68 11/02/2014 9:05 AM EDT Temperature 36.4 ??C (97.5 ??F) 11/02/2014 9:05 AM ED T Respiratory Rate 20 11/02/2014 9:05 AM EDT Oxygen Saturation - - Inhaled Oxygen Concentration - - Weight 73.9 kg (163 lb) 11/02/2014 9:05 AM EDT Height 170.2 cm (5' 7 ) 11/02/2014 9:05 AM EDT Body Mass Index 25.53 11/02/2014 9:05 AM EDT Plan of Treatment Not on file Insurance [facility] Care Teams [employer] Relationship Specialty Start Date End Date Willem Nguyen NP [address] [place] [address] PCP - General 12/26/17
--- OUTSIDE RECORDS SUMMARY | 2024-06-29 15:04 | XMS_ITS | Clinical Summary ---
Author Organization [address] [place] [address] Address [address] [place] [address] Phone Care Team Providers Care Commercial Front Load Operator Name Role Phone Physician, Pcp Unknown Primary Care Provider Amparo vailable Allergies No known active allergies Medications metFORMIN (GLUCOPHAGE) 500 mg tablet Take 1 Tab by mouth 2 times daily (with meals). 0 Active glipiZIDE (GLUCOTROL XL) 2.5 mg 24 hr tablet Take 1 tablet (2.5 mg total) by mouth 1 (one) time each day. 0 Active atorvastatin (LIPITOR) 20 mg tablet Take 1 tablet (20 mg total) by mouth 1 (one) time each day. 0 Active bisacodyL (Dulcolax, bisacodyl,) 5 mg EC tablet Take 4 tabs by mouth at 6pm the evening before procedure 0 Active ibuprofen (ADVIL,MOTRIN) 600 mg tablet Take 1 Tab by mouth every 6 hours as needed for Pain. Take with food. 0 Active methocarbamoL (ROBAXIN) 750 mg tablet Take 1 Tab by mouth 3 times daily as needed (muscle spasms). 0 Active naltrexone (DEPADE) 50 mg tablet Take 1 tablet (50 mg total) by mouth 1 (one) time each day. 30 each 5 Active thiamine 100 mg tablet Take 1 tablet (100 mg total) by mouth 1 (one) time each day. 30 tablet 5 Active Active Problems Problem Noted Date Diagnosed Date Hyperlipidemia 03/29/2017 HTN (hypertension) 03/25/2017 Insomnia 05/09/2015 Resolved Problems Problem Noted Date Diagnosed Date Resolved Date Alcohol withdrawal syndrome with complication [place] [place] [facility] [place] 06/01/2024 06/03/2024 Encounters Date Type Department Care Team Description 06/04/2024 Telephone Internal Medicine - [place] [address] [facility] [address] [place] [address] Kami George MD [place]: Medication 06/01/2024 4:02 AM EDT - 06/03/2024 12:09 PM EDT Hospital Encounter [facility] Urology Unit [address] [place] [address] Maximo Zepeda MD [place], Estate, MD Alcohol withdrawal syndrome with complication ([facility] [place] [facility] [place] (Primary Dx) Discharge Disposition: Home or Self Care from Last 3 Months Immunizations Name Administration Dates Next Due Tdap Tetanus diptheria acell ular pertussis (Boostrix; Adacel) 7yo and older 05/09/2015 Surgical History Surgery Date Site/Laterality Comments OTHER SURGICAL HISTORY PROCEDURE: DENIES PREVIOUS SURGERY Medical History Medical History Date Comments HTN (hypertension) 03/25/2017 DX:HTN (hyper tension) Hyperlipidemia 03/29/2017 DX:Hyperlipidemi a Insomnia 05/09/2015 DX:Insomnia Prediabetes 01/24/2018 DX:Prediabetes Diabetes mellitus ([facility] [place] [facility] [place] Family History Medical History Relation Name Comments Diabetes Brother No Known Problems Mother Relation Name Status Comments Brother Father Alive Mother Alive Social History Tobacco Use Types Packs/Day Years Used Date Smoking Tobacco: Never Smokeless Tobacco: Never Alcohol Use Standard Drinks/Week Comments Yes 5 (1 standard drink = 0.6 oz pur e alcohol) Housing Instability Answer Date Recorde d Are you worried that in the next 2 months you may not have stable housing? No 06/01/2024 Food Access & Nutrition Answer Date Rec orded Do you have access to a vari ety of food including fruits and vegetables? Yes 06/01/2024 Access to Healthcare Answer Date Record ed Within the last 3 months, ho w many times did you visit the emergency department for your medical care? 0 06/01/2024 Health Literacy Answer Date Recorded How often do you need to hav e someone help you when you read instructions, pamphlets, or other written material from your doctor or pharmacy? Never 06/01/2024 Caregiver: How often do you need to have someone help you when you read instructions, pamphlets, or other written material from your doctor or pharmacy? Not on file 06/01/2024 Financial Risk Answer Date Recorded How hard is it for you to pa y for the very basics like food, housing, medical care, and air conditioning / heating? Not very hard 06/01/2024 Transportation Answer Date Recorded Has the lack of transportati on kept you from meetings, work, or from getting things needed for daily living? No Has the lack of transportati on kept you from medical appointments or from getting medications? No 06/01/2024 Social Isolation Answer Date Recorded How often do you feel lonely or isolated from th ose around you? Never 06/01/2024 Food Risk Answer Date Recorded Within the past 12 months we worried whether our food would run out before we got money to buy more. Never true 06/01/2024 Within the past 12 months th e food we bought just didn't last and we didn't have money to get more. Never true 06/01/2024 Dependent Care Answer Date Recorded Do you need help finding or paying for care for your loved ones. For example, child day care provider or elderly care for an older adult? No 06/01/2024 Education Answer Date Recorded Do you think completing more education or training, like finishing a GED, going to college, or learning a trade, would be helpful for you? N/A 06/01/2024 Employment and Income Answer Date Recor ded During the last four weeks, have you been actively looking for work? No 06/01/2024 Living Situation Answer Date Recorded What is your living situation? 0 06/01/2024 Interpersonal Safety Answer Date Record ed Physical Abuse 06/01/2024 Verbal Abuse 06/01/2024 Sex and Gender Information Value Date Recorded Sex Assigned at Male 06/01/2024 7:35 AM EDT Legal Sex Male 4:57 PM EST Gender Identity Male 06/01/2024 7:35 AM EDT Sexual Orientation Straight 06/01/2024 7: 35 AM EDT Obstetrics History Last Filed Vital Signs Vital Sign Reading Time Taken Comments Blood Pressure 134/87 06/03/2024 8:32 AM EDT Pulse 86 06/03/2024 8:32 AM EDT Temperature 36.3 ??C (97.3 ??F) 06/03/2024 8:32 AM ED T Respiratory Rate 16 06/03/2024 8:32 AM EDT Oxygen Saturation 95% 06/03/2024 8:32 AM EDT Inhaled Oxygen Concentration - - Weight 73.8 kg (162 lb 12.8 oz) 06/01/2024 3:46 AM EDT Height 167.6 cm (5' 6 ) 06/01/2024 3:46 AM EDT Body Mass Index 26.28 06/01/2024 3:46 AM EDT Plan of Treatment Upcoming Encounters Date Type Department Care Team (Late st Contact Info) Description 08/17/2024 1:00 PM EDT Office Visit Internal Medicine - [place] [address] [facility] [address] [place] [address] Kami George MD [address] [facility] [address] [place] [address] Health Maintenance Due Date Last Done Comments Diabetes: Annual Foot Exam 1978 Diabetes: Annual Retina Eye Exam 1978 Hepatitis A Vaccines (1 of 2 - Risk 2-dose series) 10/11/1987 Hepatitis B Vaccines (1 of 3 - 19+ 3-dose series) 10/11/1987 Pneumococcal Vaccine: 50+ Years (1 of 2 - PCV) 10/11/1987 Pneumococcal Vaccine: Pediatrics (0 to 5 Years) and At-Risk Patients (6 to 64 Years) (1 of 2 - PCV) 10/11/1987 Zoster Vaccines (1 of 2) 2018 Depression Screening 12/13/2023 HIV Screening 12/13/2023 Hepatitis C Screening 12/13/2023 Diabetes: Annual Urine Albumin-Creatinine Ratio (uACR) 06/01/2024 08/15/2018 Diabetes: Blood Sugar Control Test (HGBA1C) 12/01/2024 06/01/2024, 01/06/2020 Cholesterol Screening (Lipid Panel) 01/05/2025 01/06/2020 DTaP,Tdap,and Td Vaccines (2 - Td or Tdap) 05/08/2025 05/09/2015 Social Influencers of Health Screening 06/01/2025 06/01/2024 Diabetes: Annual GFR (Glomerular Filtration Rate) 06/03/2025 06/03/2024, 06/02/2024, 06/01/2024, Additional history exists Hypertension/CHF/CAD Annual BMP Blood Test 06/03/2025 06/03/2024, 06/02/2024, 06/01/2024, Additional history exists Colorectal Cancer Screening: Colonoscopy 04/13/2029 04/13/2019 COVID-19 Vaccine Completed 02/01/2024, , 11/10/2021, Additional history exists Influenza Vaccine Completed 02/01/2024, , 12/17/2021 HIB Vaccines Aged Out No longer eligi ble based on patient's age to complete this topic HPV Vaccines Aged Out No longer eligi ble based on patient's age to complete this topic IPV Vaccines Aged Out No longer eligi ble based on patient's age to complete this topic MMR Vaccines Aged Out No longer eligi ble based on patient's age to complete this topic Meningococcal ACWY Vaccine Aged Out N o longer eligible based on patient's age to complete this topic Meningococcal B Vaccine Aged Out No l onger eligible based on patient's age to complete this topic RSV Immunization Patients Under 20 months Aged Out No longer eligible based on patient's age to complete this topic Varicella Vaccines Aged Out No longer eligible based on patient's age to complete this topic Procedures Procedure Name Priority Date/Time Associated Diagnosis Comments ECG ANNOTATED 06/04/2024 POCT GLUCOSE BLOOD Routine 06/03/2024 11 :28 AM EDT POCT GLUCOSE BLOOD Routine 06/03/2024 8: 34 AM EDT LAVENDER - EDTA Routine 06/03/2024 6:21 AM EDT EXTRA TUBES Routine 06/03/2024 6:21 AM EDT MAGNESIUM Routine 06/03/2024 6:21 AM EDT BASIC METABOLIC PANEL Routine 06/03/2024 6:21 AM EDT POCT GLUCOSE BLOOD Routine 06/02/2024 8: 43 PM EDT POCT GLUCOSE BLOOD Routine 06/02/2024 4: 44 PM EDT POCT GLUCOSE BLOOD Routine 06/02/2024 3: 09 PM EDT POCT GLUCOSE BLOOD Routine 06/02/2024 11 :04 AM EDT POCT GLUCOSE BLOOD Routine 06/02/2024 8: 18 AM EDT POCT GLUCOSE BLOOD Routine 06/02/2024 7: 26 AM EDT LAVENDER - EDTA Routine 06/02/2024 5:47 AM EDT EXTRA TUBES Routine 06/02/2024 5:47 AM EDT BASIC METABOLIC PANEL Routine 06/02/2024 5:47 AM EDT POCT GLUCOSE BLOOD Routine 06/01/2024 8: 24 PM EDT POCT GLUCOSE BLOOD Routine 06/01/2024 3: 39 PM EDT POCT GLUCOSE BLOOD Routine 06/01/2024 11 :41 AM EDT POCT GLUCOSE BLOOD Routine 06/01/2024 9: 57 AM EDT METHADONE SCREEN, URINE STAT 06/01/2024 5:26 AM EDT PHENCYCLIDINE, URINE STAT 06/01/2024 5:26 AM EDT BUPRENORPHINE SCREEN, URINE STAT 06/01/2024 5:26 AM EDT DRUG ABUSE SCREEN 8A PANEL, URINE STAT 06/01/2024 5:26 AM EDT HEMOGLOBIN A1C Add-On 06/01/2024 4:27 AM EDT CBC WITH AUTO DIFFERENTIAL STAT 06/01/2024 4:27 AM EDT CBC AND DIFFERENTIAL STAT 06/01/2024 4:27 AM EDT COMPREHENSIVE METABOLIC PANEL STAT 06/01/2024 4:27 AM EDT LIPASE STAT 06/01/2024 4:27 AM EDT MAGNESIUM STAT 06/01/2024 4:27 AM EDT ETHANOL STAT 06/01/2024 4:27 AM EDT ECG 12-LEAD STAT 06/01/2024 4:10 AM EDT LIPID PANEL Routine 01/06/2020 HM COLONOSCOPY Routine 04/13/2019 HM URINE ALBUMIN CREATININE RATIO Routine 08/15/2018 from Last 3 Months or Most Recently Relevant to Health Maintenance Results * ECG-Annotated (06/04/2024) Provider Onbase MD ECG ORDERABLES Final Result * (ABNORMAL) POCT Glucose, blood (06/03/2024 11:28 AM EDT) Only the most recent of12 resultswithin the time period is included. Glucose POCT 172(H) 70 - 100 mg/dL 06/03/2024 11:29 AM EDT [facility]) [facility] Blood Capillary blood specimen / Unknown 06/03/2024 11:28 AM EDT 06/03/2024 11:30 AM EDT Roman Rosa MD LAB POINT OF CARE TE ST DOCKED DEVICE UNSOLICITED RESULTS Final Result Performing Organization Address [facility] Co de Phone Number [facility] [address] [place] [address], [place] [phone] * Lavender tube (06/03/2024 6:21 AM EDT) Only the most recent of2 resultswithin the time period is included. [facility] Extra Tube Hold for add-ons. 06/03/2024 9:01 AM EDT [facility] Comment:Auto resulted. Blood Venous blood specimen / Unknown Venipuncture / Unknown 06/03/2024 6:21 AM EDT 06/03/2024 7:07 AM EDT us Roman Rosa MD LAB BLOOD ORDERABLES Final R esult Performing Organization Address [facility] de Phone Number [facility] [address] [place] [address], [place] [phone] * Magnesium (06/03/2024 6:21 AM EDT) Only the most recent of2 resultswithin the time period is included. [facility] Magnesium 1.9 1.9 - 2.6 mg/dL LAB CHEMISTRY METHOD 06/03/2024 7:59 AM EDT [facility] Blood Venous blood specimen / Unknown Venipuncture / Unknown 06/03/2024 6:21 AM EDT 06/03/2024 7:06 AM EDT us Roman Rosa MD LAB BLOOD ORDERABLES Final R esult Performing Organization Address [facility] Co de Phone Number [facility] [address] [place] [address], [place] [phone] * (ABNORMAL) Basic metabolic panel (06/03/2024 6:21 AM EDT) Only the most recent of2 resultswithin the time period is included. Sodium 137 133 - 145 mmol/L LAB CHEMISTRY METHOD 06/03/2024 7:59 AM [facility] Potassium 3.4(L) 3.5 - 5.5 mmol/L LAB CHEMISTRY METHOD 06/03/2024 7:59 AM [facility] Chloride 104 96 - 110 mmol/L LAB CHEMISTRY METHOD 06/03/2024 7:59 AM [facility] CO2 24 21 - 32 mmol/L LAB CHEMISTRY METHOD 06/03/2024 7:59 AM [facility] Anion Gap 9 3 - 11 LAB CHEMISTRY METHOD 06/03/2024 7:59 AM [facility] Glucose 144(H) 70 - 100 mg/dL LAB CHEMISTRY METHOD 06/03/2024 7:59 AM [facility] BUN 8 5 - 25 mg/dL LAB CHEMISTRY METHOD 06/03/2024 7:59 AM [facility] Creatinine 0.72 0.70 - 1.30 mg/dL LAB CHEMISTRY METHOD 06/03/2024 7:59 AM [facility] eGFR 108 >=60 mL/min/1. 73m2 LAB CHEMISTRY METHOD 06/03/2024 7:59 AM [facility] Comment:Calculation based on the??Chronic Kidney Disease Epidemiology Collaboration (CKD-EPI) equation refit??without adjustment for race. BUN/Creatinine Ratio 11.1 LAB CHEMISTRY METHOD 06/03/2024 7:59 AM [facility] Calcium 8.7 8.5 - 10.5 mg/dL LAB CHEMISTRY METHOD 06/03/2024 7:59 AM [facility] Blood Venous blood specimen / Unknown Venipuncture / Unknown 06/03/2024 6:21 AM EDT 06/03/2024 7:06 AM EDT us Estate Shelley FREEMAN LAB BLOOD ORDERABLES Final R esult [facility] [address] [place] [address], * Drug abuse screen 8a panel, urine (06/01/2024 5:26 AM EDT) Amphetamine Screen, Ur Negative Negative LAB CHEMISTRY METHOD 06/01/2024 6:03 AM EDT [facility] Comment:Certain OTC medicati ons containing ephedrine, phenylephrine, pseudoephedrine and phenylpropanolamine can cause false positive results. Barbiturate Screen, Ur Negative Negative LAB CHEMISTRY METHOD 06/01/2024 6:[facility] Benzodiazepine Screen, Ur Negative Negative LAB CHEMISTRY METHOD 06/01/2024 6:03 AM [facility] Cocaine Screen, Ur Negative Negative LAB CHEMISTRY METHOD 06/01/2024 6:03 AM [facility] Opiate Screen, Ur Negative Negative LAB CHEMISTRY METHOD 06/01/2024 6:03 AM [facility] Cannabinoid (THC) Screen, Ur Negative Negative LAB CHEMISTRY METHOD 06/01/2024 6:03 AM [facility] Comment:Specimens from patie nts taking pantoprazole sodium (Protonix) have been shown to produce false positive results. Oxycodone Screen, Ur Negative Negative LAB CHEMISTRY METHOD 06/01/2024 6:03 AM EDT [facility] Fentanyl, Ur Negative Negative LAB CHEMISTRY METHOD 06/01/2024 6:03 AM [facility] Urine Urine specimen obtained by clean catch procedure / Unknown Non-blood Collection / Unknown 06/01/2024 5:26 AM EDT 06/01/2024 5:42 AM EDT Narrative [facility] - 06/01/2024 6:03 AM EDT Assay cutoffs: Amphetamines ? 1000 ng/mL Barbiturates ?200 ng/mL Benzodiazepines ?? 200 ng/mL Cocaine ? 300 ng/mL Fentanyl ?1 ng/mL Opiates ? 300 ng/mL Oxycodone ? 100 ng/mL THC ?50 ng/mL Semi-quantitative assay for screening purposes only. Unconfirmed screening result should not be used for non-medical purposes. *ALTERNATE METHOD CONFIRMATION DONE UPON REQUEST ONLY* Maximo Zepeda MD LAB URINE ORDERABLES Final Res ult Performing Organization Address [facility] de Phone Number [facility] [address] [place] [address], * Buprenorphine screen, urine (06/01/2024 5:26 AM EDT) [facility] Buprenorphine Screen Urine Negative Negative LAB CHEMISTRY METHOD 06/01/2024 6:03 AM EDT [facility] Urine Urine specimen obtained by clean catch procedure / Unknown Non-blood Collection / Unknown 06/01/2024 5:26 AM EDT 06/01/2024 5:42 AM EDT Narrative [facility] - 06/01/2024 6:03 AM EDT Assay cutoff 5 ng/mL Semi-quantitative assay for screening purposes only. Unconfirmed screening result should not be used for non-medical purposes. *ALTERNATE METHOD CONFIRMATION DONE UPON REQUEST ONLY* Maximo Zepeda MD LAB URINE ORDERABLES Final Res ult Performing Organization Address [facility] Co de Phone Number [facility] [address] [place] [address], * Methadone, urine (06/01/2024 5:26 AM EDT) Pathologist [facility] Methadone Screen, Urine Negative Negative LAB CHEMISTRY METHOD 06/01/2024 6:03 AM EDT [facility] Comment: Assay cutoff 300 ng/mL Semi-quantitative assay for screening purposes only. Unconfirmed screening result should not be used for non-medical purposes. *ALTERNATE METHOD CONFIRMATION DONE UPON REQUEST ONLY* Urine Urine specimen obtained by clean catch procedure / Unknown Non-blood Collection / Unknown 06/01/2024 5:26 AM EDT 06/01/2024 5:42 AM EDT Maximo Zepeda MD LAB URINE ORDERABLES Final Res ult Performing Organization Address [facility] Co de Phone Number [facility] [address] [place] [address], [place] [phone] * Phencyclidine, urine (06/01/2024 5:26 AM EDT) PCP Scrn, Ur Negative Negative LAB CHEMISTRY METHOD 06/01/2024 6:03 AM EDT [facility] Comment: Assay cutoff 25 ng/mL Semi-quantitative assay for screening purposes only. Unconfirmed screening result should not be used for non-medical purposes. *ALTERNATE METHOD CONFIRMATION DONE UPON REQUEST ONLY* Urine Urine specimen obtained by clean catch procedure / Unknown Non-blood Collection / Unknown 06/01/2024 5:26 AM EDT 06/01/2024 5:42 AM EDT Maximo Zepeda MD LAB URINE ORDERABLES Final Res ult Performing Organization Address City/[facility]/ZIP Co de Phone Number [facility] [address] [place] [address], [place] [phone] * CBC auto differential (06/01/2024 4:27 AM EDT) WBC 5.1 4.8 - 10.8 K/[facility] LAB HEMETOLOGY METHOD 06/01/2024 5:00 AM EDT [facility] RBC 5.10 4.50 - 5.50 M/mcL LAB HEMETOLOGY METHOD 06/01/2024 5:00 AM [facility] Hemoglobin 15.4 13.5 - 17.5 g/dL LAB HEMETOLOGY METHOD 06/01/2024 5:00 AM [facility] Hematocrit 43.3 42.0 - 54.0 % LAB HEMETOLOGY METHOD 06/01/2024 5:00 AM [facility] MCV 85.1 79.0 - 98.0 FL LAB HEMETOLOGY METHOD 06/01/2024 5:00 AM [facility] MCH 30.3 27.0 - 32.0 pcg LAB HEMETOLOGY METHOD 06/01/2024 5:00 AM [facility] MCHC 35.6 32.0 - 37.0 g/dL LAB HEMETOLOGY METHOD 06/01/2024 5:00 AM [facility] RDW 12.0 11.0 - 15.0 % LAB HEMETOLOGY METHOD 06/01/2024 5:00 AM [facility] Platelets 215 130 - 400 K/mcL LAB HEMETOLOGY METHOD 06/01/2024 5:00 AM [facility] MPV 10.4 7.0 - 11.0 FL LAB HEMETOLOGY METHOD 06/01/2024 5:00 AM [facility] NRBC 0.0 <1.0 % LAB HEMETOLOGY METHOD 06/01/2024 5:00 AM [facility] NRBC Absolute 0.00 <0.10 K/mcL LAB HEMETOLOGY METHOD 06/01/2024 5:00 AM [facility] Neutrophils Relative 50.3 % LAB HEMETOLOGY METHOD 06/01/2024 5:00 AM [facility] Lymphocytes Relative 38.0 % LAB HEMETOLOGY METHOD 06/01/2024 5:00 AM EDT [facility] Monocytes Relative 6.8 % LAB HEMETOLOGY METHOD 06/01/2024 5:00 [facility] Eosinophils Relative 3.7 % LAB HEMETOLOGY METHOD 06/01/2024 5:00 AM [facility] Basophils Relative 1.0 % LAB HEMETOLOGY METHOD 06/01/2024 5:00 AM EDT [facility] Immature Granulocytes Relative 0.2 % LAB HEMETOLOGY METHOD 06/01/2024 5:00 AM EDT [facility] Neutrophils Absolute 2.57 1.50 - 7.00 K/mcL LAB HEMETOLOGY METHOD 06/01/2024 5:00 AM [facility] Lymphocytes Absolute 1.94 1.00 - 5.00 K/mcL LAB HEMETOLOGY METHOD 06/01/2024 5:00 [facility] Monocytes Absolute 0.35 0.20 - 1.00 K/mcL LAB HEMETOLOGY METHOD 06/01/2024 5:00 AM [facility] Eosinophils Absolute 0.19 0.00 - 0.50 K/mcL LAB HEMETOLOGY METHOD 06/01/2024 5:00 AM [facility] Basophils Absolute 0.05 0.00 - 0.20 K/mcL LAB HEMETOLOGY METHOD 06/01/2024 5:00 [facility] Immature Granulocytes Absolute 0.01 0.00 - 0.03 K/mcL LAB HEMETOLOGY METHOD 06/01/2024 5:00 AM [facility] Blood Venous blood specimen / Unknown Venipuncture / Unknown 06/01/2024 4:27 AM EDT 06/01/2024 4:55 AM EDT us Maximo Zepeda MD LAB BLOOD ORDERABLES Final Res ult [facility] [address] [place] [address], [place] [phone] * Lipase (06/01/2024 4:27 AM EDT) [facility] Lipase 25 13 - 75 unit/L LAB CHEMISTRY METHOD 06/01/2024 5:26 AM EDT [facility] Blood Venous blood specimen / Unknown Venipuncture / Unknown 06/01/2024 4:27 AM EDT 06/01/2024 4:55 AM EDT us Maximo Zepeda MD LAB BLOOD ORDERABLES Final Res ult Performing Organization Address [facility]/ZIP Co de Phone Number [facility] [address] [place] [address], [place] [phone] * (ABNORMAL) Hemoglobin A1c (06/01/2024 4:27 AM EDT) [facility] Hemoglobin A1C 7.3(H) <6.5 % LAB CHEMISTRY METHOD 06/01/2024 1:56 PM EDT [facility] Mean Bld Glu Estim. 163 mg/dL LAB CHEMISTRY METHOD 06/01/2024 1:56 PM EDT [facility] Blood Venous blood specimen / Unknown Venipuncture / Unknown 06/01/2024 4:27 AM EDT 06/01/2024 4:55 AM EDT us Maximo Zepeda MD LAB BLOOD ORDERABLES Final Res ult [facility] [address] [place] [address], [place] [phone] * (ABNORMAL) Ethanol (06/01/2024 4:27 AM EDT) [facility] Ethanol Level 59(H) 0 - 10 mg/dL LAB CHEMISTRY METHOD 06/01/2024 5:26 AM EDT [facility] Blood Venous blood specimen / Unknown Venipuncture / Unknown 06/01/2024 4:27 AM EDT 06/01/2024 4:55 AM EDT us Maximo Zepeda MD LAB BLOOD ORDERABLES Final Res ult [facility] [address] [place] [address], [place] [phone] * (ABNORMAL) Comprehensive metabolic panel (06/01/2024 4:27 AM EDT) Sodium 133 133 - 145 mmol/L LAB CHEMISTRY METHOD 06/01/2024 5:26 AM [facility] Potassium 3.3(L) 3.5 - 5.5 mmol/L LAB CHEMISTRY METHOD 06/01/2024 5:26 AM [facility] Comment:Hemolysis present Chloride 97 96 - 110 mmol/L LAB CHEMISTRY METHOD 06/01/2024 5:26 AM [facility] CO2 22 21 - 32 mmol/L LAB CHEMISTRY METHOD 06/01/2024 5:26 AM [facility] Anion Gap 14(H) 3 - 11 LAB CHEMISTRY METHOD 06/01/2024 5:26 AM [facility] Glucose 227(H) 70 - 100 mg/dL LAB CHEMISTRY METHOD 06/01/2024 5:26 AM [facility] BUN 11 5 - 25 mg/dL LAB CHEMISTRY METHOD 06/01/2024 5:26 AM [facility] Creatinine 0.78 0.70 - 1.30 mg/dL LAB CHEMISTRY METHOD 06/01/2024 5:26 AM [facility] eGFR 105 >=60 mL/min/1. 73m2 LAB CHEMISTRY METHOD 06/01/2024 5:26 AM [facility] Comment:Calculation based on the??Chronic Kidney Disease Epidemiology Collaboration (CKD-EPI) equation refit??without adjustment for race. BUN/Creatinine Ratio 14.1 LAB CHEMISTRY METHOD 06/01/2024 5:26 AM [facility] Calcium 8.4(L) 8.5 - 10.5 mg/dL LAB CHEMISTRY METHOD 06/01/2024 5:26 AM [facility] AST (SGOT) 37 10 - 42 unit/L LAB CHEMISTRY METHOD 06/01/2024 5:26 AM [facility] Comment:Hemolysis present ALT (SGPT) 36 10 - 60 unit/L LAB CHEMISTRY METHOD 06/01/2024 5:26 AM [facility] Alkaline Phosphatase 84 42 - 121 unit/L LAB CHEMISTRY METHOD 06/01/2024 5:26 AM [facility] Total Protein 7.2 6.0 - 8.0 g/dL LAB CHEMISTRY METHOD 06/01/2024 5:26 AM [facility] Albumin 3.6 3.2 - 5.0 g/dL LAB CHEMISTRY METHOD 06/01/2024 5:26 AM [facility] Total Bilirubin 0.9 0.0 - 1.4 mg/dL LAB CHEMISTRY METHOD 06/01/2024 5:26 AM [facility] Blood Venous blood specimen / Unknown Venipuncture / Unknown 06/01/2024 4:27 AM EDT 06/01/2024 4:55 AM EDT us Maximo Zepeda MD LAB BLOOD ORDERABLES Final Res ult [facility] [address] [place] [address], * ECG 12 lead (06/01/2024 4:10 AM EDT) Ventricular Rate ECG 96 BPM GEMUSE Atrial Rate 96 BPM GEMUSE P-R Interval 134 ms GEMUSE QRS Duration 102 ms GEMUSE Q-T Interval 370 ms GEMUSE QTc 467 ms GEMUSE P Wave [place] 57 degrees GEMUSE R [place] 42 degrees GEMUSE T [place] 24 degrees GEMUSE ECG Interpretation Normal sinus rhythm Incomplete right bundle branch block Borderline ECG When compared with ECG of 15-OCT-2018 12:20, Incomplete right bundle branch block is present Confirmed by Bindu PEREZ YUFENG ([id number]) on 06/01/2024 5:32:12 PM GEMUSE 06/01/2024 4:10 AM EDT 06/01/2024 5:32 PM EDT Maximo Zepeda MD ECG ORDERABLES Final Result GEMUSE * (ABNORMAL) Lipid panel (01/06/2020) [facility] LDL/HDL Ratio 5(A) 0 - 4 Triglycerides 145 0 - 150 mg/dL Cholesterol 180 0 - 200 mg/dL HDL 35(A) >=40 mg/dL LDL Cholesterol 116(A) 0 - 100 mg/dL Blood Venous blood specimen / Unknown Result [facility] Historical [facility] LAB BLOOD ORDERABLES Roxy l Result * Colonoscopy (04/13/2019) [facility] Colonoscopy abstracted, no interpretation Anatomical Region Laterality Modality Other Result [facility] Historical [facility] HEALTH MAINTENANCE Final Result * Urine Albumin Creatinine Ratio (08/15/2018) [facility] Urine Albumin Creatinine Ratio abstracted Historical Provider HEALTH MAINTENANCE Final Result from Last 3 Months or Most Recently Relevant to Health Maintenance Insurance [facility]) Advance Directives * Full Code - Default (Latest Code Status on File) Date Activated Date Inactivated Comments 06/01/2024 8:09 AM 06/03/2024 2:24 PM This is orde r is used when code status has not been discussed with the patient, or code status is otherwise unknown/unconfirmed To update the patient's code status, place a code status order. Do not modify or discontinue any currently active code status orders. Care Teams Commercial Front Load Operator Relationship Specialty Start Date End Date Physician, Pcp Unknown PCP - General 06/01/24
--- NOTE | 2024-06-29 15:08 | MHC.PC.OV ---
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 per policy Accompanied by: Self / Same As Patient Allergies No Known Allergies Allergy (Verified 06/29/24 15:26) Medication List - Last Reconciled 06/29/24 by Florence Lee PA-C atorvastatin 40 mg PO DAILY glipizide ER mg PO metformin 1,000 mg PO BID Tobacco use date assessed: 06/29/24 Dental Screening Dental Screen Date: 06/29/24 Did you have a dental visit in the last 12 months?: Yes Did you have a dental problem in the last 6 months where you did not have access to dental care?: No Was dental information given to patient?: Patient has dentist HPI SANJUANITA Dr Landaverde/ DM HPI Details 53-year-old male with past medical history of diabetes mellitus, hyperlipidemia, asthma and alcohol use disorder last seen 02/[address] Landaverde coming in for transfer of care.? In review of the notes, patient follows with [facility] endocrinology last seen July 2023 A1c at that time was 10.4% plan to follow up in 6 weeks. Unclear if any further appointments. Presenting for follow-up on diabetes management and associated health issues. He reports an improvement in A1c levels from high previous records to 6.9 due to recent positive lifestyle modifications. The patient is currently taking Metformin and Glipizide for diabetes, Atorvastatin for hyperlipidemia, and recently started on Naltrexone for alcohol use disorder after hospitalization for severe intoxication. He plans virtual management for alcohol use through resources available via his 's employment. Additionally, the patient reports sleep difficulties, characterized by consistent low sleep duration and occasional blurry vision, which is under evaluation. [facility] Medical History Hyperlipidemia associated with type 2 diabetes mellitus Hyperlipidemia Diabetes mellitus Surgical History No pertinent past surgical history Family History Father No problems noted. Mother No problems noted. Social History Housing: House Alcohol intake: current Alcohol intake frequency: a few times a month Patient Tobacco Use Status: Never used Tobacco e-Cigarette/Vaping Use: Never Used Second Hand Smoke Exposure: No service: No Current occupational status: employed Current occupational exposures/hazards: No Cognitive needs: No Hearing needs: No Vision needs: No Questionnaire PHQ-9 Over the last 2 weeks, how often have you been bothered by any of the following problems? 1. Little interest or pleasure in doing things: not at all 2. Feeling down, depressed, or hopeless: not at all 3. Trouble falling or staying asleep, or sleeping too much: more than half the days 4. Feeling tired or having little energy: not at all 5. Poor appetite or overeating: not at all 6. Feeling bad about yourself - or that you are a failure or have let yourself or your family down: not at all 7. Trouble concentrating on things, such as reading the newspaper or watching television: not at all 8. Moving or speaking so slowly that other people could have noticed. Or the opposite - being so fidgety or restless that you have been moving around a lot more than usual: not at all 9. Thoughts that you would be better off or of hurting yourself in some way: not at all Total score: 2 Depression Screening Interpretation: Negative Depression Screening Done: Yes Source: Developed by Drs. Alan Perez, Mitzy De Souza, Bryan Haider and colleagues, with an educational nando from [employer]. Thrive Questionnaire Date Thrive assessed: 06/29/24 I am a: Patient What is your living situation today?: I have a steady place to live Within the past 12 months, did the food you bought not last and you didn't have the money to get more?: Never true Within the past 12 months, did you worry whether your food would run out before you got money to buy more?: Never true Do you have trouble paying for medicines?: No Do you have trouble getting transportation to medical appointments?: No Do you have trouble paying your heating and electricity bill?: No Do you have trouble taking care of your child, family member or friend?: No Do you have trouble with day-to-day activities such as bathing, preparing meals, shopping, managing finances, etc.?: No Are you currently unemployed and looking for a job?: No Are you interested in more education?: Yes Please select the resources that you would like help with: None Currently or been in a relationship where the following occur: No concerns reported THRIVE Score: 0 AUDIT C Alcohol Use Questionnaire (AUDIT-C) 1. How often do you have a drink containing alcohol?: Never Total Score: 0 SERGEI-7 AMB Questionnaire SERGEI-7 Date SERGEI - 7 assessed: 06/29/24 Feeling nervous, anxious, or on edge: 0 = Not at all Not being able to stop or control worryin = Not at all Worrying too much about different things: 0 = Not at all Trouble relaxin = Not at all Being so restless that it is hard to sit still: 0 = Not at all Becoming easily annoyed or irritable: 0 = Not at all Feeling afraid as if something awful might happen: 0 = Not at all Total SERGEI-7 score (0-4 normal; 5-9 mild; 10-14 moderate; 15-21 severe): 0 Source: Developed by Drs. Alan Perez, Mitzy De Souza, Bryan Haider and colleagues, with an educational nando from [employer]. SERGEI-7 Assessment Billing SERGEI-7 Assessment Tool: SERGEI-7 Assessment 36095 Review of Systems Const Denies body aches, Denies chills, Denies fever(s), Denies headache(s) and Denies poor appetite Eyes Reports no additional complaints ENT Denies dizziness and Denies headache(s) Card Denies chest pain, Denies syncope, Denies edema, Denies irregular heart rhythm, Denies lightheadedness and Denies dyspnea Resp Denies dyspnea GI Denies abdominal pain, Denies constipation, Denies diarrhea, Denies nausea and Denies vomiting Reports no additional complaints Musc Reports no additional complaints and Denies abnormal gait Skin/Breast Reports system reviewed and no additional complaints, except as documented Neuro Denies abnormal gait, Denies dizziness, Denies syncope and Denies headache(s) Psych Reports no additional complaints Physical exam (Primary Care) Vital Signs: Last Vital Signs Temp 97.1 F 06/29/24 15:09 Pulse 88 06/29/24 15:09 BP 132/78 06/29/24 15:09 Pulse Ox 96 06/29/24 15:09 Oxygen Delivery Method Room Air 06/29/24 15:09 BMI result Body Mass Index 25.9 Tobacco/Smoking Status: Tobacco use Status Tobacco use date assessed 06/29/24 06/29/24 15:15 Patient Tobacco Use Status Never used Tobacco 06/29/24 15:15 Tobacco use type 08/12/23 14:59 e-Cigarette/Vaping Use Never Used 06/29/24 15:15 PHQ-9: PHQ-9 Score PHQ-9: Total score 2 06/29/24 15:15 Depression Screening Interpretation: Negative Thrive Assessment: Date of Thrive Assessment Date Thrive assessed 06/29/24 06/29/24 15:15 Currently or been in a relationship where the following occur: No concerns reported Const General: cooperative, healthy appearing, comfortable and no acute distress Orientation/consciousness: patient oriented x3 HENMT Head: Yes normocephalic Ears: hearing grossly normal bilaterally General nose exam: Normal external nose present Eyes General: appearance normal, both eyes and all related structures Conjunctivae: conjunctivae normal Neck Neck: Yes full ROM and Yes no lymphadenopathy Resp Effort & Inspection: normal respiratory effort Auscultation: clear to auscultation bilaterally, no crackles, no rales, no rhonchi and no wheezes Cardio Rate: regular rate Rhythm: regular rhythm Skin General skin exam: no rashes or lesions noted Neuro General: patient oriented x3 Gait exam (Neuro): Normal gait present Extrem General: Yes normal to inspection, Yes full ROM and No edema Psych Affect: normal affect Attitude: cooperative Insight: Good insight present (Psych) Judgement: Good judgement present (Psych) Results AMB Hemoglobin A1c AMB Hemoglobin A1c 6.9 % Last Edit by MIREYA Maguire on 06/29/24 15:23 Coding Level of Care Code Est Pt Level 3 (64777) Diagnoses Alcohol use disorder F10.90 Hyperlipidemia associated with type 2 diabetes mellitus E11.69; E78.5 Diabetes mellitus E11.9 Insomnia G47.00 Additional Codes SERGEI-7 Assessment Billing - SERGEI-7 Assessment Tool: SERGEI-7 Assessment 42921 ([id number]) Assessment & Plan Assessment & Plan (1) Alcohol use disorder: Code(s): F10.90 - Alcohol use, unspecified, uncomplicated Category: Medical Plan: Patient currently on naltrexone as prescribed by hospitalist following recent admission. I did discuss the importance of alcohol cessation and plan to continue on naltrexone. I did recommend comprehensive [facility] however patient declines and states he has having services through his 's employer. (2) Hyperlipidemia associated with type 2 diabetes mellitus: Code(s): E11.69 - Type 2 diabetes mellitus with other specified complication; E78.5 - Hyperlipidemia, unspecified Category: Medical Plan: Avoid foods that are high in cholesterol such as red meat, fried foods, eggs and baked goods. Triglyceride goal of less than 150 and LDL goal of less than 100. Continue on atorvastatin (3) Diabetes mellitus: Code(s): E11.9 - Type 2 diabetes mellitus without complications Category: Medical Plan: Decrease the amount of carbohydrates such as pasta, bread, rice, and potatoes and limit the amount of sweets. Although fruits are generally healthy they should be eaten in moderation as they are still high in sugar. Hemoglobin A1c goal of less than 7%. A1c 6.9% in the office today. Advised patient to continue on glipizide and metformin and discussed importance of dietary and lifestyle modification as well. (4) Insomnia: Code(s): G47.00 - Insomnia, unspecified Category: Medical Plan: Patient reporting difficulty staying asleep at night. He would like to avoid prescription management at this time. Advised patient he may use magnesium or melatonin [id number] as needed for sleep. Plan The management plan includes continued Metformin and Glipizide with dietary modifications for diabetes, maintaining current Atorvastatin for hyperlipidemia, and continuation of Naltrexone for alcohol use disorder, exploring virtual addiction support options. A dilated eye exam is encouraged annually due to diabetes. OTC sleep aids are recommended for improving sleep quality. A colonoscopy is advised for preventive health maintenance. Monitoring will continue with follow-up on A1c levels and health screenings. This note was constructed using voice recognition software. While every effort has been made to ensure accuracy and program coordinator executive education, still areas may have been included sometimes these areas may affect the content or meeting of the given symptoms. Total time spent caring for the patient today was 30 minutes. This includes time spent before the visit reviewing the chart, time spent during the visit, and time spent after the visit and documentation. Patient was informed and verbally consented to the use of an ambient scribe for clinic note documentation during this visit. Orders: Orders PSA, Ultra Sensitive Today Z00.00 - Encounter for general adult medical examination without abnormal findings Comprehensive Met. Panel Today Z00.00 - Encounter for general adult medical examination without abnormal findings Complete Blood Count Auto Diff Today Z00.00 - Encounter for general adult medical examination without abnormal findings Free T4 (Free Thyroxine) Today Z00.00 - Encounter for general adult medical examination without abnormal findings Microalbumin, Random (w Creat) Today E11.9 - Type 2 diabetes mellitus without complications AMB Hemoglobin A1c Today E11.9 - Type 2 diabetes mellitus without complications Vitamin B12 and Folate Today Z00.00 - Encounter for general adult medical examination without abnormal findings Vitamin D 25-OH Total Today Z00.00 - Encounter for general adult medical examination without abnormal findings Lipid Panel Today E11.69 - Type 2 diabetes mellitus with other specified complication, E78.5 - Hyperlipidemia, unspecified Referrals Gastroenterology Referral Z12.11 - Encounter for screening for malignant neoplasm of colon Optometry Referral E11.69 - Type 2 diabetes mellitus with other specified complication, E78.5 - Hyperlipidemia, unspecified Medications: New glipizide 2.5 mg PO BID 60 tabs 0RF naltrexone 50 mg PO DAILY 90 tabs 0RF
[2024-06-29 15:09] VITALS: BP 132/78; PULSE 88; TEMP 36.2; O2SAT 96; BMI 25.9
== END 2024-06-29 15:48 | disposition home or self-care (01) ==
LOC: HO.HMCH 15:02
PROVIDERS: PCP Internal Medicine
DX: F10.90 Alcohol use, unspecified, uncomplicated (principal); E11.69 Type 2 diabetes mellitus with other specified complication; E78.5 Hyperlipidemia, unspecified; E11.9 Type 2 diabetes mellitus without complications; G47.00 Insomnia, unspecified

== ENCOUNTER → 2024-06-29 15:01 | Outpatient (BNVA) | payer BC, SELFPAY | PROVIDERS: PCP Internal Medicine | DX: E11.69 Type 2 diabetes mellitus with other specified complication (principal); E78.5 Hyperlipidemia, unspecified; G47.00 Insomnia, unspecified; F10.90 Alcohol use, unspecified, uncomplicated; Z79.84 Long term (current) use of oral hypoglycemic drugs | CPT/HCPCS: 83036; 96127 ==

== ENCOUNTER 2024-08-08 08:05 | Outpatient (REF) | payer BC, SELFPAY ==
[2024-08-08 08:31] LABS: MANUAL DIFF FLAG NO
[2024-08-08 08:37] LABS: Basophils Percent Auto 0.6 % (0-2); Eosinophils Absolute Auto 0.3 X10*3/uL (0.0-0.4); Eosinophils Percent Auto 5.5 % (0-4); Hematocrit 45.1 % (42.0-52.0); Hemoglobin 15.5 g/dl (14.0-18.0); Imm Gran Abs Auto 0.01 X10*3/uL (0.00-0.03); Imm Gran Pct Auto 0.2 % (0.0-0.4); Lymphocytes Absolute Auto 1.4 X10*3/uL (1.2-4.9); Lymphocytes Percent Auto 27.2 % (20-40); Mean Corpuscular HGB Conc 34.4 g/dl (31.0-36.0); Mean Corpuscular Volume 87.4 fL (80.0-98.0); Mean Platelet Volume 10.1 fL (9.4-12.4); Monocytes Absolute Auto 0.4 X10*3/uL (0.1-1.2); Monocytes Percent Auto 7.3 % (2-11); Neutrophils Percent Auto 59.2 % (45-73); Platelet Count 176 X10*3/uL (160-400); Red Blood Count 5.16 X10*6/uL (4.60-5.80); Red Cell Distribution Width 12.5 % (11.0-16.0); White Blood Count 5.1 X10*3/uL (4.8-10.8)
[2024-08-08 09:15] LABS: Alanine Aminotransferase 45 U/L (0-40); Albumin Level 4.4 g/dL (3.5-5.0); Alkaline Phosphatase 76 U/L (39-117); Anion Gap 12 (12-20); Aspartate Amino Transferase 45 U/L (5-37); Bilirubin Total 1.1 mg/dL (0.0-1.0); Blood Urea Nitrogen 14 mg/dL (9-16); Calcium 9.2 mg/dL (8.4-10.2); Carbon Dioxide 25 mmol/L (22-29); Chloride 102 mmol/L (96-108); Cholesterol 166 mg/dL (<200); Estimated Glomerular Filt Rate > 60; Glucose Random 154 mg/dL (60-115); HDL Cholesterol 48 mg/dL (>40); LDL Cholesterol Calculated 68 mg/dL (<100); Potassium 3.3 mmol/L (3.3-5.1); Sodium 136 mmol/L (135-145); Total Protein 7.4 g/dL (6.5-8.0); Triglycerides 252 mg/dL (<150)
[2024-08-08 09:30] LABS: Free T4 (Free Thyroxine) 1.04 ng/dL (0.71-1.85)
[2024-08-08 09:41] LABS: Creatinine Urine 235.95 mg/dL; Microalbum/Creatinine Ratio Ur 4.6 ug/mg cr (<30)
[2024-08-08 09:48] LABS: Folate 8.5 ng/mL (> or = 4.0); Vitamin B12 259 pg/mL (200-900)
[2024-08-18 22:33] LABS: PSA, Ultra Sensitive 1.78 ng/mL
== END 2024-08-08 08:06 | disposition home or self-care (01) ==
LOC: HO.LAB 08:05
DX: Z00.00 Encounter for general adult medical examination without abnormal findings (principal); E11.9 Type 2 diabetes mellitus without complications; E11.69 Type 2 diabetes mellitus with other specified complication; E78.5 Hyperlipidemia, unspecified; Z12.5 Encounter for screening for malignant neoplasm of prostate; E55.9 Vitamin D deficiency, unspecified
CPT/HCPCS: 36415; 80053; 80061; 82043; 82306; 82570; 82607; 82746; 84153; 84439; 85025

== ENCOUNTER 2024-08-10 09:52 | Outpatient (AMB) | payer BC, SELFPAY ==
[2024-08-10 09:58] VITALS: BP 110/60; PULSE 81; TEMP 36.3; O2SAT 95; BMI 25.4
--- NOTE | 2024-08-10 09:58 | A.OFFPC_ITS ---
Vital Signs 3 08/10/24 09:58 Height 5 ft 6 in Weight 157 lb 4 oz BMI 25.4 BP 110/60 Blood Pressure Location Lt brachial Position Sitting Pulse 81 Pulse Source Pulse Oximeter Temp 97.3 F Temp Source Temporal Artery Scan Pulse Oximetry (%) 95 Oxygen Delivery Method Room Air Intake Visit Reasons: Annual Exam Intake Note: Patient is here today for a physical. Nursing Officer Required: No Rail Director: Not Required per policy Accompanied by: Self / Same As Patient Allergies No Known Allergies Allergy (Verified 08/10/24 10:09) Medication List - Last Reconciled 08/10/24 by Florence Lee PA-C atorvastatin 40 mg PO DAILY glipizide ER 2.5 mg PO BID metformin 1,000 mg PO BID naltrexone 50 mg PO DAILY Tobacco use date assessed: 08/10/24 Dental Screening Dental Screen Date: 06/29/24 HPI Annual Exam 2 HPI0 Details 53-year-old male with past medical histo ry of diabetes mellitus, hyperlipidemia, asthma and alcohol use disorder last seen 06/2024 coming in for annual exam. Presenting with management of chronic conditions, including Type 2 Diabetes Mellitus and Alcohol Use Disorder, along with addressing sleep disturbances. The patient's Hemoglobin A1c has improved from 10.6% to 6.9%, indicating better glycemic control, though dietary adjustments are still necessary to maintain levels below 7%. The patient reports recent alcohol consumption due to a , which may have contributed to elevated liver enzymes. He is currently using naltrexone for management. The patient reports chronic sleep issues, with difficulty maintaining sleep and a history of poor sleep patterns since childhood. Yjqf-pwp-zjlhyqx options like magnesium and melatonin were discussed. The patient has a long-standing bump that occasionally enlarges and reduces in size, suspected to be a cyst or callus, with no immediate intervention required. PSA: Completed 07/2024 currently pending Colonoscopy: 2020 repeat in 10 years [facility] Medical History Hyperlipidemia associated with type 2 diabetes mellitus Hyperlipidemia Diabetes mellitus Surgical History No pertinent past surgical history Family History Father No problems noted. Mother No problems noted. Social History Housing: House Alcohol intake: current Alcohol intake frequency: a few times a month Patient Tobacco Use Status: Never used Tobacco e-Cigarette/Vaping Use: Never Used Second Hand Smoke Exposure: No service: No Current occupational status: employed Current occupational exposures/hazards: No Cognitive needs: No Hearing needs: No Vision needs: No Questionnaire Thrive Questionnaire Date Thrive assessed: 06/29/24 I am a: Patient What is your living situation today?: I have a steady place to live Within the past 12 months, did the food you bought not last and you didn't have the money to get more?: Never true Within the past 12 months, did you worry whether your food would run out before you got money to buy more?: Never true Do you have trouble paying for medicines?: No Do you have trouble getting transportation to medical appointments?: No Do you have trouble paying your heating and electricity bill?: No Do you have trouble taking care of your child, family member or friend?: No Do you have trouble with day-to-day activities such as bathing, preparing meals, shopping, managing finances, etc.?: No Are you currently unemployed and looking for a job?: No Are you interested in more education?: Yes Please select the resources that you would like help with: None Currently or been in a relationship where the following occur: No concerns reported THRIVE Score: 0 SERGEI-7 AMB Questionnaire SERGEI-7 Date SERGEI - 7 assessed: 06/29/24 Source: Developed by Drs. Alan Perez, Mitzy De Souza, Bryan Haider and colleagues, with an educational nando from [employer]. Review of Systems Const Denies body aches, Denies chills, Denies fatigue, Denies fever(s), Denies headache(s) and Denies poor appetite Eyes Reports no additional complaints ENT Denies dysphagia, Denies dizziness, Denies headache(s) and Denies odynophagia Card Denies chest pain, Denies syncope, Denies edema, Denies irregular heart rhythm, Denies lightheadedness and Denies dyspnea Resp Denies cough and Denies dyspnea GI Denies abdominal pain, Denies constipation, Denies dysphagia, Denies diarrhea, Denies nausea, Denies odynophagia and Denies vomiting Reports no additional complaints Musc Reports no additional complaints and Denies abnormal gait Skin/Breast Reports system reviewed and no additional complaints, except as documented Neuro Denies abnormal gait, Denies dizziness, Denies syncope and Denies headache(s) Psych Reports no additional complaints Endo Denies fatigue Physical exam (Primary Care) Vital Signs: Last Vital Signs Temp 97.3 F 08/10/24 09:58 Pulse 81 08/10/24 09:58 BP 110/60 08/10/24 09:58 Pulse Ox 95 08/10/24 09:58 Oxygen Delivery Method Room Air 08/10/24 09:58 BMI result Body Mass Index 25.4 Tobacco/Smoking Status: Tobacco use Status Tobacco use date assessed 08/10/24 08/10/24 10:04 Patient Tobacco Use Status Never used Tobacco 08/10/24 10:04 Tobacco use type 08/12/23 14:59 e-Cigarette/Vaping Use Never Used 08/10/24 10:04 Thrive Assessment: Date of Thrive Assessment Date Thrive assessed 06/29/24 08/10/24 10:04 Currently or been in a relationship where the following occur: No concerns reported Const General: cooperative, healthy appearing, comfortable and no acute distress Orientation/consciousness: patient oriented x3 HENMT Head: Yes normocephalic Ears: hearing grossly normal bilaterally, external ears normal, TM's normal bilaterally and EAC's normal General nose exam: Normal external nose present Face and sinus: Yes normal facial exam and Yes sinuses nontender Mouth: Normal oral and palatal mucosa present and tongue normal Throat: Yes posterior oropharynx normal Eyes General: appearance normal, both eyes and all related structures Conjunctivae: conjunctivae normal Pupils: Equal, round and reactive pupils present EOM: EOMs intact bilaterally and No Nystagmus present Neck Neck: Yes normal visual inspection, Yes full ROM and Yes no lymphadenopathy Chest Chest palpation & inspection: normal inspection of the chest Resp Effort & Inspection: normal respiratory effort Auscultation: clear to auscultation bilaterally, no crackles, no rales, no rhonchi, no wheezes and breath sounds present Cardio Rate: regular rate Rhythm: regular rhythm Peripheral pulses: radial pulses present and dorsalis pedis present GI Inspection: Yes normal to inspection and No Abdominal wall edema Palpation (GI): Soft to palpation, not firm and nontender Auscultation: normal bowel sounds Rectal Exam - Male: Yes deferred General: Yes no CVA tenderness Back/Spine/Pelvis Back: no CVA tenderness Skin General skin exam: no rashes or lesions noted Full body images: 2 1. small area of raised thickened skin Neuro General: patient oriented x3 Cranial nerves: Yes Equal, round and reactive pupils present, Yes Midline tongue present, Yes Ability to bilaterally elevate shoulders present and No Nystagmus present Gait exam (Neuro): Normal gait present Extrem General: Yes normal to inspection, Yes full ROM, No no pedal edema and No edema Psych Speech and movement: Normal speech and movement present Affect: normal affect Insight: Good insight present (Psych) Judgement: Good judgement present (Psych) Coding Level of Care Code Est Pt Prev Care 40-64y(49397) Diagnoses Physical exam Z00.00 Alcohol use disorder F10.90 Hyperlipidemia associated with type 2 diabetes mellitus E11.69; E78.5 Type 2 diabetes mellitus without complication, without long-term current use of insulin E11.9 Diabetes mellitus type: type 2 Diabetes mellitus buttermilk drier operator insulin use: without buttermilk drier operator use Diabetes mellitus complication status: without complication Primary insomnia F51.01 Insomnia type: primary Callus of hand L84 Assessment & Plan Assessment & Plan (1) Physical exam: Code(s): Z00.00 - Encounter for general adult medical examination without abnormal findings Category: Medical Plan: Patient is up-to-date on all recommended routine screenings and vaccinations for his age. Healthy diet and regular exercise is encouraged. (2) Alcohol use disorder: Code(s): F10.90 - Alcohol use, unspecified, uncomplicated Category: Medical Plan: Continue with the use of Naltrexone. I did offer referral to [facility] today which was declined. (3) Hyperlipidemia associated with type 2 diabetes mellitus: Code(s): E11.69 - Type 2 diabetes mellitus with other specified complication; E78.5 - Hyperlipidemia, unspecified Category: Medical Plan: Avoid foods that are high in cholesterol such as red meat, fried foods, eggs and baked goods. Triglyceride goal of less than 150 and LDL goal of less than 100. Continue on atorvastatin 40. 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 Although fruits are generally healthy they should be eaten in moderation as they are still high in sugar. Hemoglobin A1c goal of less than 7%. Last A1c 6.9% continue on glipizide and metformin. I did discuss the importance of lowering this number as medication adjustment will be made if continues to rise. (5) Insomnia: Code(s): G47.00 - Insomnia, unspecified Category: Medical Qualifiers: Insomnia type: primary Qualified Code(s): F51.01 - Primary insomnia Plan: Patient reporting difficulty staying asleep at night. He would like to avoid prescription management at this time. Advised patient he may use magnesium or melatonin [id number] as needed for sleep. Declined sleep study today. (6) Callus of hand: Code(s): L84 - Corns and callosities Category: Medical Plan: Patient has a small area of raised thickened skin in the right hand, consistent with callus or possibly cyst. I did offer a referral to dermatology today which was declined. Continue to monitor at this time. Patient agrees to reach out if growing or changing. Plan The management plan includes continued monitoring of Type 2 Diabetes Mellitus with emphasis on dietary modifications to maintain Hemoglobin A1c below 7%. Alcohol consumption should be minimized to prevent further elevation of liver enzymes, and the patient should continue using naltrexone. For hypertriglyceridemia, dietary changes are recommended to lower triglyceride levels and reduce cardiovascular risk. For sleep disturbances, fksk-ika-yimzuzk options such as magnesium and melatonin are suggested, with the possibility of a sleep study if issues persist. The bump, suspected to be a cyst or callus, requires no immediate intervention unless it becomes bothersome. This note was constructed using voice recognition software. While every effort has been made to ensure accuracy and pipeline controller, still areas may have been included sometimes these areas may affect the content or meeting of the given symptoms. Total time spent caring for the patient today was 30 minutes. This includes time spent before the visit reviewing the chart, time spent during the visit, and time spent after the visit and documentation. Patient was informed and verbally consented to the use of an ambient scribe for clinic note documentation during this visit.
--- OUTSIDE RECORDS SUMMARY | 2024-08-10 10:47 | XMS_ITS | Clinical Summary ---
Author Organization [facility] Address [address] [place] [address] Care Team Providers Care Escalation Engineer Name Role Phone Willem Nguyen NP Primary Care Provider Source Comments PLEASE NOTE, if this patient [...] 68 11/02/2014 9:05 AM EDT Temperature 36.4 C (97.5 F) 11/02/2014 9:05 AM EDT Respiratory Rate 20 11/02/2014 9:05 AM EDT Oxygen Saturation - - Inhaled Oxygen Concentration - - Weight 73.9 kg (163 lb) 11/02/2014 9:05 AM EDT Height 170.2 cm (5' 7 ) 11/02/2014 9:05 AM EDT Body Mass Index 25.53 11/02/2014 9:05 AM EDT Plan of Treatment Not on file Insurance [employer] Care Teams Escalation Engineer Relationship Specialty Start Date End Date Willem Nguyen NP [address] [place] [address] PCP - General 12/26/17
== END 2024-08-10 10:33 | disposition home or self-care (01) ==
LOC: HO.HMCH 09:53
DX: Z00.00 Encounter for general adult medical examination without abnormal findings (principal); F10.90 Alcohol use, unspecified, uncomplicated; E11.69 Type 2 diabetes mellitus with other specified complication; E78.5 Hyperlipidemia, unspecified; E11.9 Type 2 diabetes mellitus without complications; F51.01 Primary insomnia; L84 Corns and callosities

== ENCOUNTER → 2024-08-10 09:52 | Outpatient (BNVA) | payer BC, SELFPAY | DX: Z13.89 Encounter for screening for other disorder (principal) ==

== ENCOUNTER 2024-11-19 08:37 | Outpatient (REF) | payer BC, SELFPAY ==
--- OUTSIDE RECORDS SUMMARY | 2024-11-19 08:56 | XMS_ITS | Clinical Summary ---
Author Organization [facility] Address [address] [place] [address] Care Team Providers Care Tractor Mechanic Name Role Phone Willem Nguyen NP Primary Care Provider [phone] Source Comments PLEASE NOTE, if this patient [...] Plan of Treatment Not on file Insurance [facility] Care Teams Tractor Mechanic Relationship Specialty Start Date End Date Willem Nguyen NP [address] [place] [address] PCP - General 12/26/17
--- OUTSIDE RECORDS SUMMARY | 2024-11-19 08:56 | XMS_ITS | Clinical Summary ---
Author Organization [address] [place] [address] [address] [place] [address] Phone Care Team Providers Care Telecom Billing Analyst Name Role Phone Physician, Pcp Unknown Primary [...] Resolved Date Alcohol withdrawal syndrome with complication ([facility] V24, [facility] V28) 06/01/2024 06/03/2024 Immunizations Immunization Administration Dates Next Due Tdap Tetanus diptheria acell ular pertussis (Boostrix; Adacel) 7yo and older 05/09/2015 Surgical History Surgery Date Site/Laterality Comments OTHER SURGICAL HISTORY PROCEDURE: DENIES PREVIOUS SURGERY Medical History Medical History Date Comments HTN (hypertension) 03/25/2017 DX:HTN (hyper tension) Hyperlipidemia 03/29/2017 DX:Hyperlipidemi a Insomnia 05/09/2015 DX:Insomnia Prediabetes 01/24/2018 DX:Prediabetes Diabetes mellitus ([facility] V24, [facility] V28) Family History Medical History Relation Name [...] for your loved ones. For example, child advocate or elderly care for an older adult? [...] Date Recorded What is your living situation? Unrecognized valu e 06/01/2024 Interpersonal Safety Answer Date Record ed Physical Abuse Unrecognized value 06/01/2024 Verbal Abuse Unrecognized value 06/01/2024 Sex and Gender Information Value Date [...] 86 06/03/2024 8:32 AM EDT Temperature 36.3 C (97.3 F) 06/03/2024 8:32 AM EDT Respiratory Rate 16 06/03/2024 8:32 AM EDT Oxygen Saturation 95% 06/03/2024 8:32 AM EDT Inhaled Oxygen Concentration - - Weight 73.8 kg (162 lb 12.8 oz) 06/01/2024 3:46 AM EDT Height 167.6 cm (5' 6 ) 06/01/2024 3:46 AM EDT Body Mass Index 26.28 06/01/2024 3:46 AM EDT Plan of Treatment Health Maintenance Due Date Last Done Comments Diabetes: Annual Foot Exam 1978 Diabetes: Annual Retina Eye Exam 1978 Hepatitis A Vaccines (1 of 2 - Risk 2-dose series) 10/11/1987 Hepatitis B Vaccines (1 of 3 - 19+ 3-dose series) 10/11/1987 Pneumococcal Vaccine: 50+ Years (1 of 2 - PCV) 10/11/1987 Zoster Vaccines (1 of 2) 2018 HIV Screening 12/13/2023 Hepatitis C Screening 12/13/2023 Depression Screening 02/19/2024 Diabetes: Annual Urine Albumin-Creatinine Ratio (uACR) 06/01/2024 08/15/2018 Influenza Vaccine (#1) 2024 , 12/31/2022, 12/17/2021 Diabetes: Blood Sugar Control Test (HGBA1C) 12/01/2024 06/01/2024, 01/06/2020 Cholesterol Screening (Lipid Panel) 01/05/2025 01/06/2020 DTaP,Tdap,and Td Vaccines (2 - Td or Tdap) 05/08/2025 05/09/2015 Social Influencers of Health Screening 06/01/2025 06/01/2024 Diabetes: Annual GFR (Glomerular Filtration Rate) 06/03/2025 06/03/2024, 06/02/2024, 06/01/2024, Additional history exists Hypertension/CHF/CAD Annual BMP Blood Test 06/03/2025 06/03/2024, 06/02/2024, 06/01/2024, Additional history exists Colorectal Cancer Screening: Colonoscopy 04/13/2029 04/13/2019 RSV Immunization Adult Patients (1 - 1-dose 75+ series) 10/11/2043 COVID-19 Vaccine Completed 02/01/2024, , 11/10/2021, Additional history exists HIB Vaccines Aged Out No longer eligi [...] Procedure Name Priority Date/Time Associated Diagnosis Comments BASIC METABOLIC PANEL Routine 06/03/2024 6:21 AM EDT HEMOGLOBIN A1C Add-On 06/01/2024 4:27 AM EDT LIPID PANEL Routine 01/06/2020 HM COLONOSCOPY Routine 04/13/2019 URINE ALBUMIN CREATININE RATIO Routine 08/15/2018 from Last 3 Months or Most Recently Relevant to Health Maintenance Results * (ABNORMAL) Basic metabolic panel (06/03/2024 6:21 AM EDT) Sodium 137 133 - 145 mmol/L LAB CHEMISTRY METHOD 06/03/2024 7:59 AM [facility] Potassium 3.4(L) 3.5 - 5.5 mmol/L LAB CHEMISTRY METHOD 06/03/2024 7:59 AM [facility] Chloride 104 96 - 110 mmol/L LAB CHEMISTRY METHOD 06/03/2024 7:59 AM [facility] CO2 24 21 - 32 mmol/L LAB CHEMISTRY METHOD 06/03/2024 7:59 AM [facility] Anion Gap 9 3 - 11 LAB CHEMISTRY METHOD 06/03/2024 7:59 AM [facility] Glucose 144(H) 70 - 100 mg/dL LAB CHEMISTRY METHOD 06/03/2024 7:59 AM [facility] BUN 8 5 - 25 mg/dL LAB CHEMISTRY METHOD 06/03/2024 7:59 AM [facility] Creatinine 0.72 0.70 - 1.30 mg/dL LAB CHEMISTRY METHOD 06/03/2024 7:59 AM EDT [facility] eGFR 108 >=60 mL/min/1. 73m2 LAB CHEMISTRY METHOD 06/03/2024 7:59 AM EDT [facility] Comment:Calculation based on the Chronic Kidney Disease Epidemiology Collaboration (CKD-EPI) equation refit without adjustment for race. BUN/Creatinine Ratio 11.1 LAB CHEMISTRY METHOD 06/03/2024 7:59 AM EDT [facility] Calcium 8.7 8.5 - 10.5 mg/dL LAB CHEMISTRY METHOD 06/03/2024 7:59 AM EDT [facility] Blood Venous blood specimen / Unknown Venipuncture / Unknown 06/03/2024 6:21 AM EDT 06/03/2024 7:06 AM EDT Roman Rosa MD LAB BLOOD ORDERABLES Final R esult Performing Organization Address [facility]/ZIP Co de Phone Number [facility] [address] [place] [address], * (ABNORMAL) Hemoglobin A1c (06/01/2024 4:27 AM EDT) Hemoglobin A1C 7.3(H) <6.5 % LAB CHEMISTRY METHOD 06/01/2024 1:56 PM EDT [facility] Mean Bld Glu Estim. 163 mg/dL LAB CHEMISTRY METHOD 06/01/2024 1:56 PM EDT [facility] Blood Venous blood specimen / Unknown Venipuncture / Unknown 06/01/2024 4:27 AM EDT 06/01/2024 4:55 AM EDT us Maximo Zepeda MD LAB BLOOD ORDERABLES Final Res ult [facility] [address] [place] [address], * (ABNORMAL) Lipid panel (01/06/2020) Pathologist [facility] LDL/HDL Ratio 5(A) 0 - 4 Triglycerides 145 0 - 150 mg/dL Cholesterol 180 0 - 200 mg/dL HDL 35(A) >=40 mg/dL LDL Cholesterol 116(A) 0 - 100 mg/dL Blood Venous blood specimen / Unknown Historical Provider MD LAB BLOOD ORDERABLES Roxy l Result * Colonoscopy (04/13/2019) [facility] Colonoscopy abstracted, no interpretation Anatomical Region Laterality Modality Other [facility] Provider MD HEALTH MAINTENANCE Final Result * Urine Albumin Creatinine Ratio (08/15/2018) [facility] Urine Albumin Creatinine Ratio abstracted [facility] Provider HEALTH MAINTENANCE Final Result from Last 3 Months or Most Recently Relevant to Health Maintenance Insurance [facility] Advance Directives * Full Code - Default [...] currently active code status orders. Care Teams Telecom Billing Analyst Relationship Specialty Start Date End Date Physician, Pcp Unknown PCP - General 06/01/24
--- OUTSIDE RECORDS SUMMARY | 2024-11-19 08:56 | XMS_ITS ---
Author Name [facility] Organization Unknown Care Team Organization Name Specialty Phone Email Start Date End Da te [facility] Primary [facility] 12/26/2021 10/07/19 24
[2024-11-19 09:30] LABS: Alanine Aminotransferase 24 U/L (0-40); Albumin Level 4.5 g/dL (3.5-5.0); Alkaline Phosphatase 82 U/L (39-117); Anion Gap 10 (12-20); Aspartate Amino Transferase 20 U/L (5-37); Blood Urea Nitrogen 10 mg/dL (9-16); Calcium 9.4 mg/dL (8.4-10.2); Carbon Dioxide 26 mmol/L (22-29); Chloride 109 mmol/L (96-108); Estimated Glomerular Filt Rate > 60; Potassium 4.2 mmol/L (3.3-5.1); Sodium 141 mmol/L (135-145); Total Protein 7.1 g/dL (6.5-8.0)
== END 2024-11-19 08:38 | disposition home or self-care (01) ==
LOC: HO.LAB 08:37
DX: E11.65 Type 2 diabetes mellitus with hyperglycemia (principal); F10.90 Alcohol use, unspecified, uncomplicated
CPT/HCPCS: 36415; 80053; 83036

== ENCOUNTER 2024-11-23 08:27 | Outpatient (AMB) | payer BC, SELFPAY ==
--- NOTE | 2024-11-23 08:31 | MHC.PC.OV ---
Vital Signs 11/23/24 08:32 Height 5 ft 6 in Weight 157 lb 2 oz BMI 25.4 BP 110/76 Blood Pressure Location Lt brachial Position Sitting Pulse 73 Pulse Source Pulse Oximeter Temp 96.9 F Temp Source Temporal Artery Scan Pulse Oximetry (%) 97 Oxygen Delivery Method Room Air Intake Visit Reasons: f/u DM Intake Note: Patient is here to follow up on DM. 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 Presenting with the management of chronic conditions including Type 2 Diabetes Mellitus, hypertension, and hyperlipidemia, along with addressing ankle pain and sleep disturbance. The patient's hemoglobin A1c was previously 6.9% and has improved to 6.4%, indicating better glycemic control. The patient reports minimal alcohol consumption, which has contributed to normalization of liver function tests. The patient reports ongoing sleep issues but has not tried [id number] remedies or medications. The patient experiences intermittent left ankle pain, particularly after rest, which improves with movement. The pain has been present for about two years without significant progression. The left ankle pain is suspected to be due to arthritis, given the history of multiple ankle sprains during adolescence and the nature of the pain. [facility] Medical History Hyperlipidemia associated with type 2 diabetes mellitus Hyperlipidemia Diabetes mellitus Surgical History No pertinent past surgical history Family History Father No problems noted. Mother No problems noted. Social History Housing: House Alcohol intake: current Alcohol intake frequency: a few times a month Patient Tobacco Use Status: Never used Tobacco e-Cigarette/Vaping Use: Never Used Second Hand Smoke Exposure: No service: No Current occupational status: employed Current occupational exposures/hazards: No Cognitive needs: No Hearing needs: No Vision needs: No Questionnaire Thrive Questionnaire Date Thrive assessed: 04/13/24 I am a: Patient What is your living situation today?: I have a steady place to live Within the past 12 months, did the food you bought not last and you didn't have the money to get more?: Never true Within the past 12 months, did you worry whether your food would run out before you got money to buy more?: Never true Do you have trouble paying for medicines?: No Do you have trouble getting transportation to medical appointments?: No Do you have trouble paying your heating and electricity bill?: No Do you have trouble taking care of your child, family member or friend?: No Do you have trouble with day-to-day activities such as bathing, preparing meals, shopping, managing finances, etc.?: No Are you currently unemployed and looking for a job?: No Are you interested in more education?: Yes Please select the resources that you would like help with: None Currently or been in a relationship where the following occur: No concerns reported THRIVE Score: 0 SERGEI-7 AMB Questionnaire SERGEI-7 Date SERGEI - 7 assessed: 06/29/24 Source: Developed by Drs. Alan Perez, Mitzy De Souza, Bryan Haider and colleagues, with an educational nando from [employer]. Review of Systems Const Denies body aches, Denies chills, Denies fever(s), Denies headache(s) and Denies poor appetite Eyes Reports no additional complaints ENT Denies dysphagia, Denies dizziness, Denies headache(s) and Denies odynophagia Card Denies chest pain, Denies syncope, Denies edema, Denies irregular heart rhythm, Denies lightheadedness and Denies dyspnea Resp Denies cough and Denies dyspnea GI Denies abdominal pain, Denies constipation, Denies dysphagia, Denies diarrhea, Denies nausea, Denies odynophagia and Denies vomiting Reports no additional complaints Musc Reports no additional complaints and Denies abnormal gait Skin/Breast Reports system reviewed and no additional complaints, except as documented Neuro Denies abnormal gait, Denies dizziness, Denies syncope and Denies headache(s) Psych Reports no additional complaints Physical exam (Primary Care) Vital Signs: Last Vital Signs Temp 96.9 F 11/23/24 08:32 Pulse 73 11/23/24 08:32 BP 110/76 11/23/24 08:32 Pulse Ox 97 11/23/24 08:32 Oxygen Delivery Method Room Air 11/23/24 08:32 BMI result Body Mass Index 25.4 Tobacco/Smoking Status: Tobacco use Status Tobacco use date assessed 11/23/24 11/23/24 08:36 Patient Tobacco Use Status Never used Tobacco 11/23/24 08:36 Tobacco use type 08/12/23 14:59 e-Cigarette/Vaping Use Never Used 11/23/24 08:36 Thrive Assessment: Date of Thrive Assessment Date Thrive assessed 04/13/24 11/23/24 08:36 Currently or been in a relationship where the following occur: No concerns reported Const General: cooperative, healthy appearing, comfortable and no acute distress Orientation/consciousness: patient oriented x3 HENMT Head: Yes normocephalic Ears: hearing grossly normal bilaterally General nose exam: Normal external nose present Eyes General: appearance normal, both eyes and all related structures Conjunctivae: conjunctivae normal Neck Neck: Yes full ROM and Yes no lymphadenopathy Resp Effort & Inspection: normal respiratory effort Auscultation: clear to auscultation bilaterally, no crackles, no rales, no rhonchi and no wheezes Cardio Rate: regular rate Rhythm: regular rhythm Skin General skin exam: no rashes or lesions noted Neuro General: patient oriented x3 Gait exam (Neuro): Normal gait present Extrem Other: no tenderness to palpation over entire left ankle. pain with dorsiflexion of the left ankle General: Yes normal to inspection, Yes full ROM and No edema Psych Affect: normal affect Attitude: cooperative Insight: Good insight present (Psych) Judgement: Good judgement present (Psych) Coding Level of Care Code Est Pt Level 3 (48765) Diagnoses Alcohol use disorder F10.90 Hyperlipidemia associated with type 2 diabetes mellitus E11.69; E78.5 Type 2 diabetes mellitus without complication, without long-term current use of insulin E11.9 Diabetes mellitus complication status: without complication Diabetes mellitus predatory animal exterminator insulin use: without senior living use Diabetes mellitus type: type 2 Primary insomnia F51.01 Insomnia type: primary Left ankle pain M25.572 Assessment & Plan Assessment & Plan (1) Alcohol use disorder: Code(s): F10.90 - Alcohol use, unspecified, uncomplicated Category: Medical Plan: Continue with the use of Naltrexone. Very little alcohol use reported. (2) Hyperlipidemia associated with type 2 diabetes mellitus: Code(s): E11.69 - Type 2 diabetes mellitus with other specified complication; E78.5 - Hyperlipidemia, unspecified Category: Medical Plan: Avoid foods that are high in cholesterol such as red meat, fried foods, eggs and baked goods. Triglyceride goal of less than 150 and LDL goal of less than 100. Continue on atorvastatin 40. LDL at goal on last labs (3) Diabetes mellitus: Code(s): E11.9 - Type 2 diabetes mellitus without complications Category: Medical Qualifiers: Diabetes mellitus complication status: without complication Diabetes mellitus senior living insulin use: without predatory animal exterminator use Diabetes mellitus type: type 2 Qualified Code(s): E11.9 - Type 2 diabetes mellitus without complications Plan: Decrease the amount of carbohydrates such as pasta, bread, rice, and potatoes and limit the amount of sweets. Although fruits are generally healthy they should be eaten in moderation as they are still high in sugar. Hemoglobin A1c goal of less than 7%. A1c improved on last labs 6.4% continue on current medication. The patient's hemoglobin A1c has improved from 6.9% to 6.4%, indicating better glycemic control. Continued monitoring and lifestyle modifications, including exercise, are recommended to maintain and further improve glycemic control. (4) Insomnia: Code(s): G47.00 - Insomnia, unspecified Category: Medical Qualifiers: Insomnia type: primary Qualified Code(s): F51.01 - Primary insomnia Plan: Patient reporting difficulty staying asleep at night. He would like to avoid prescription management at this time. Advised patient he may use magnesium or melatonin [id number] as needed for sleep. Declined sleep study today. (5) Left ankle pain: Code(s): M25.572 - Pain in left ankle and joints of left foot Category: Medical Plan: The patient experiences intermittent left ankle pain, likely due to arthritis. Conservative management with topical arthritis creams and gentle stretching is recommended. An x-ray is not deemed necessary at this time. Plan This note was constructed using voice recognition software. While every effort has been made to ensure accuracy and farm implement mechanic, still areas may have been included sometimes these areas may affect the content or meeting of the given symptoms. Total time spent caring for the patient today was 30 minutes. This includes time spent before the visit reviewing the chart, time spent during the visit, and time spent after the visit and documentation. Patient was informed and verbally consented to the use of an ambient scribe for clinic note documentation during this visit. Orders: Orders Lipid Panel 6 Months E78.00 - Pure hypercholesterolemia, unspecified Hemoglobin A1c 6 Months E11.65 - Type 2 diabetes mellitus with hyperglycemia
[2024-11-23 08:32] VITALS: BP 110/76; PULSE 73; TEMP 36.1; O2SAT 97; BMI 25.4
--- OUTSIDE RECORDS SUMMARY | 2024-11-23 09:00 | XMS_ITS | Clinical Summary ---
Author Organization [address] [place] [address] Address [address] [place] [address] Phone Care Team Providers Care Settlement Technician Name Role Phone Physician, Pcp Unknown Primary [...] Resolved Date Alcohol withdrawal syndrome with complication ([facility] V24, [facility] V28) 06/01/2024 06/03/2024 Immunizations Immunization Administration Dates Next Due Tdap Tetanus diptheria acell ular pertussis (Boostrix; Adacel) 7yo and older 05/09/2015 Surgical History Surgery Date Site/Laterality Comments OTHER SURGICAL HISTORY PROCEDURE: DENIES PREVIOUS SURGERY Medical History Medical History Date Comments HTN (hypertension) 03/25/2017 DX:HTN (hyper tension) Hyperlipidemia 03/29/2017 DX:Hyperlipidemi a Insomnia 05/09/2015 DX:Insomnia Prediabetes 01/24/2018 DX:Prediabetes Diabetes mellitus ([facility] V24, [facility] V28) Family History Medical History Relation Name [...] care for your loved ones. For example, residential child care counselor or elderly care for an older adult? [...] mmol/L LAB CHEMISTRY METHOD 06/03/2024 7:59 AM [facility] Potassium 3.4(L) 3.5 - 5.5 mmol/L LAB CHEMISTRY METHOD 06/03/2024 7:59 AM [facility] Chloride 104 96 - 110 mmol/L LAB CHEMISTRY METHOD 06/03/2024 7:59 AM [facility] CO2 24 21 - 32 mmol/L LAB CHEMISTRY METHOD 06/03/2024 7:59 AM [facility] Anion Gap 9 3 - 11 LAB CHEMISTRY METHOD 06/03/2024 7:59 AM [facility] Glucose 144(H) 70 - 100 mg/dL LAB CHEMISTRY METHOD 06/03/2024 7:59 AM [facility] BUN 8 5 - 25 mg/dL LAB CHEMISTRY METHOD 06/03/2024 7:59 AM [facility] Creatinine 0.72 0.70 - 1.30 mg/dL LAB CHEMISTRY METHOD 06/03/2024 7:59 AM EDT [facility] eGFR 108 >=60 mL/min/1. 73m2 LAB CHEMISTRY METHOD 06/03/2024 7:59 AM EDT [facility] Comment:Calculation based on the Chronic Kidney Disease Epidemiology Collaboration (CKD-EPI) equation refit without adjustment for race. BUN/Creatinine Ratio 11.1 LAB CHEMISTRY METHOD 06/03/2024 7:59 AM EDT [facility] Calcium 8.7 8.5 - 10.5 mg/dL LAB CHEMISTRY METHOD 06/03/2024 7:59 AM EDT [facility] Blood Venous blood specimen / Unknown Venipuncture / Unknown 06/03/2024 6:21 AM EDT 06/03/2024 7:06 AM EDT Roman Rosa MD LAB BLOOD ORDERABLES Final R esult Performing Organization Address [facility]/ZIP Co de Phone Number [facility] [address] [place] [address], * (ABNORMAL) Hemoglobin A1c (06/01/2024 4:27 AM EDT) Hemoglobin A1C 7.3(H) <6.5 % LAB CHEMISTRY METHOD 06/01/2024 1:56 PM EDT [facility] Mean Bld Glu Estim. 163 mg/dL LAB CHEMISTRY METHOD 06/01/2024 1:56 PM EDT [facility] Blood Venous blood specimen / Unknown Venipuncture / Unknown 06/01/2024 4:27 AM EDT 06/01/2024 4:55 AM EDT us Maximo eZpeda MD LAB BLOOD ORDERABLES Final Res ult [facility] [address] [place] [address], * (ABNORMAL) Lipid panel (01/06/2020) Pathologist [facility] LDL/HDL Ratio 5(A) 0 - 4 Triglycerides 145 0 - 150 mg/dL Cholesterol 180 0 - 200 mg/dL HDL 35(A) >=40 mg/dL LDL Cholesterol 116(A) 0 - 100 mg/dL Blood Venous blood specimen / Unknown Historical Provider MD LAB BLOOD ORDERABLES Roxy l Result * Colonoscopy (04/13/2019) [facility] Colonoscopy abstracted, no interpretation Anatomical Region Laterality Modality Other [facility] Provider MD HEALTH MAINTENANCE Final Result * Urine Albumin Creatinine Ratio (08/15/2018) [facility] Urine Albumin Creatinine Ratio abstracted [facility] Provider HEALTH MAINTENANCE Final Result from Last 3 Months or Most Recently Relevant to Health Maintenance Insurance [facility]) Advance Directives * Full Code - Default [...] currently active code status orders. Care Teams Settlement Technician Relationship Specialty Start Date End Date Physician, Pcp Unknown PCP - General 06/01/24
--- OUTSIDE RECORDS SUMMARY | 2024-11-23 09:00 | XMS_ITS | Clinical Summary ---
Author Organization [facility] Address [address] [place] [address] Care Team Providers Care Char Conveyor Tender Cellar Name Role Phone Willem Nguyen NP Primary Care Provider [phone] Source Comments PLEASE NOTE, if this patient [...] Treatment Not on file Insurance [facility] Care Teams Char Conveyor Tender Cellar Relationship Specialty Start Date End Date Willem Nguyen NP [address] [place] [address] PCP - General 12/26/17
== END 2024-11-23 09:03 | disposition home or self-care (01) ==
LOC: HO.HMCH 08:28
DX: F10.90 Alcohol use, unspecified, uncomplicated (principal); E11.69 Type 2 diabetes mellitus with other specified complication; E78.5 Hyperlipidemia, unspecified; E11.9 Type 2 diabetes mellitus without complications; F51.01 Primary insomnia; M25.572 Pain in left ankle and joints of left foot